=== PATIENT | male | born 1985 | race Caucasian/White ===

== ENCOUNTER 2017-08-15 07:57 | Emergency (ER) | payer OTHER, SELFPAY ==
[2017-08-15 07:58] VITALS: BP 134/81; PULSE 98; RESP 16; TEMP 36.8; O2SAT 98; BMI 31.6
--- NOTE | 2017-08-15 08:17 | HMH.EDGENADL ---
ED Disposition Clinical Impression: Viral gastroenteritis Disposition: Home, Self-Care Condition on Discharge: Good Instructions: DI for Viral Gastroenteritis -- Adult Additional Instructions: Additional instructions for VOMITING/DIARRHEA: See your physician as soon as possible for further evaluation. Return immediately if severe abdominal pain, uncontrollable vomiting, shortness of breath, fever, vomiting of blood or abdominal distention. Prescriptions: Loperamide HCl [Loperamide] 2 mg PO TIDP PRN #10 tab PRN Reason: Diarrhea Ondansetron [Zofran 4mg ODT] 4 mg PO TIDP PRN #10 tab.rapdis PRN Reason: Nausea And Vomiting Forms: Work/School Release - Critical Care Critical Care Time: No Attestation: On , the high probability of a clinically significant, sudden or life threatening deterioration of the following system(s) required my full and direct attention, intervention and personal management. The time I documented below is in addition to time spent performing reported procedures but includes the following listed in this critical care notation. Medical Decision Making Vital Signs: 08/15/17 07:58 Temperature 98.2 F Temperature Source Oral Pulse Rate [Right Radial] 98 H Respiratory Rate 16 Blood Pressure [Right Arm] 134/81 Blood Pressure Mean [Right Arm] 98 Blood Pressure Source [Right Arm] Automatic Cuff Blood Pressure Position [Right Arm] Sitting 02 Sat by Pulse Oximetry 98 - Lab Data Lab Results 08/15/17 08:40: WBC 8.7, RBC 5.01, Hgb 14.9, Hct 44.1, MCV 88.0, MCH 29.7, MCHC 33.7, RDW 12.6, Plt Count 235, MPV 7.9, Neut % (Auto) 53.4, Lymph % (Auto) 36.8, [place] % (Auto) 3.8, Eos % (Auto) 5.3, Baso % (Auto) 0.7, Neut # (Auto) 4.7, Lymph # (Auto) 3.2, [place] # (Auto) 0.3, Eos # (Auto) 0.5 H, Baso # (Auto) 0.1 08/15/17 08:40: Sodium 140, Potassium 3.7, Chloride 106, Carbon Dioxide 25, Anion Gap 12.7, BUN 13, Creatinine 0.88, Estimated Creat Clear 207, Estimated GFR 102, Est GFR ( Amer) 124, Glucose 97, Calcium 8.4 L, Total Bilirubin 0.4, AST 32, ALT 60, Alkaline Phosphatase 98, Total Protein 7.1, Albumin 3.7, Globulin 3.4 H, Albumin/Globulin Ratio 1.1 08/15/17 08:40: Influenza Type A Ag Negative, Influenza Type B Ag Negative Result diagrams: 08/15/17 08:40 08/15/17 08:40 Orders (Tests/Meds): ED MEDICATIONS Discontinued Medications Generic Name Dose Route Start Last Admin Trade Name Cheo PRN Reason Stop Dose Admin Loperamide HCl 4 mg 08/15/17 08:23 08/15/17 08:58 Imodium 2 Mg Capsule PO 08/15/17 08:24 4 mg ONCE ONE Administration Ondansetron HCl 4 mg 08/15/17 08:23 08/15/17 08:58 Zofran 4mg/2ml Vial IV 08/15/17 08:24 4 mg ONCE ONE Administration Sodium Chloride 1,000 ml 08/15/17 08:42 08/15/17 08:59 Sod Chlor 0.9% 1000ml Bag IV 08/15/17 08:43 1,000 ml BOLUS ONE Administration - Dl Inquiry Pt receiving controlled substance: No Medical Decision Making Narrative: 9:45 AM: Patient states feels better. Nausea is better. No diarrhea in the ED. Chest feels achy. Declines Toradol. General Adult HPI - General Chief complaint: Abdominal Pain Stated complaint: nausea diaherra head congestion Mode of Arrival: Ambulatory Limitations: No Limitations Description of Symptoms (Recalled from ER Triage Doc. by RN): N/V/D Started 1800 08/14. C/O Dizziness this morning. Denies CP or SOB. Takes nexium for GERD, no other meds. Took 400mg Ibuprofen this AM for current symptoms. - History of Present Illness HPI narrative: He states he has been sick since yesterday with 6 episodes of diarrhea without blood, 3 episodes of vomiting this morning while at work, intermittent epigastric pain, bitemporal headache, body aches, mild cough and rhinorrhea. No known exposures. Prior history of diverticulitis, states that his abdominal pain does not feel anything like previous diverticulitis, which gives him constant lower abdominal pain. No fever. - Related Da
[2017-08-15 08:52] LABS: Basophils # 0.1 K/mm3 (0-0.2); Basophils % 0.7 % (0.1-2.0); Eosinophils # 0.5 K/mm3 (0.0-0.4); Eosinophils % 5.3 % (0.1-12.0); Hematocrit 44.1 % (42.0-52.0); Hemoglobin 14.9 g/dL (14.1-18.0); Lymphocytes # 3.2 K/mm3 (0.7-4.5); Lymphocytes % 36.8 K/mm3 (10-50); Mean Corpuscular HGB Conc 33.7 g/dL (31.8-35.4); Mean Corpuscular Hemoglobin 29.7 pg (27.0-31.2); Mean Platelet Volume 7.9 fl (7.4-10.4); Monocytes # 0.3 K/mm3 (0.1-1.0); Monocytes % 3.8 % (1.7-9.3); Neutrophils # 4.7 K/mm3 (1.8-7.8); Neutrophils % 53.4 % (37.0-80.0); Platelet Count 235 K/mm3 (142-424); Red Blood Count 5.01 M/mm3 (4.60-6.20); Red Cell Distribution Width 12.6 % (11.5-17.5); White Blood Count 8.7 K/mm3 (4.8-10.8)
[2017-08-15 09:24] LABS: Alanine Aminotransferase 60 U/L (12-78); Albumin Level 3.7 gm/dL (3.4-5.0); Albumin/Globulin Ratio 1.1 (1.1-1.8); Alkaline Phosphatase 98 U/L (46-116); Anion Gap 12.7 mEq/L (5-15); Aspartate Amino Transferase 32 U/L (15-37); Bilirubin,Total 0.4 mg/dL (0.2-1.0); Blood Urea Nitrogen 13 mg/dL (7-18); Calcium 8.4 mg/dL (8.5-10.1); Carbon Dioxide 25 mmol/L (21.0-32.0); Chloride 106 mmol/L (98-107); Creatinine Clearance Estimated 207 mL/min (0-300); Creatinine,Serum 0.88 mg/dL (0.70-1.30); Estimated Glomerular Filt Rate 102 ml/min (>60); GFR (African American) 124 ML/MIN (>60); Globulin 3.4 gm/dl (1.3-3.2); Glucose 97 mg/dL (74-106); Potassium 3.7 mmoL/L (3.5-5.1); Sodium 140 mmol/L (136-145); Total Protein,Serum 7.1 gm/dL (6.4-8.2)
[2017-08-15 09:55] VITALS: BP 150/103; PULSE 57; RESP 18; TEMP 36.6; O2SAT 99
== END 2017-08-15 10:02 | disposition home or self-care (01) ==
PROVIDERS: Emergency Medicine; Emergency Provider Emergency Medicine; Family Provider Family Medicine
DX: A08.4 Viral intestinal infection, unspecified (principal); Z90.49 Acquired absence of other specified parts of digestive tract; F17.210 Nicotine dependence, cigarettes, uncomplicated
CPT/HCPCS: 80053; 85025; 87275; 87276; 96365; 96366; 96374; 96375; 99282; J2405

== ENCOUNTER 2018-12-18 12:12 | Emergency (ER) | payer MEDICAID, SELFPAY ==
[2018-12-18 12:14] VITALS: BP 120/79; PULSE 79; RESP 18; TEMP 36.8; O2SAT 98; BMI 32.8
--- NOTE | 2018-12-18 12:21 | XR_ITS ---
XR chest 2V HISTORY: ITS.REASON: chest pain ORDERING PHYSICIAN: Jarvis Pereyra MD PATIENT AGE: 33 years COMPARISON: 02/24/2018. FINDINGS: The cardiomediastinal silhouette and pulmonary vascularity are within normal limits. There are stable right lung benign calcified granulomas. The remainder of the lung hightower are clear.. No acute bony abnormalities. IMPRESSION: No significant change and no acute process.
[2018-12-18 12:30] LABS: Basophils # 0.1 K/mm3 (0-0.2); Basophils % 0.8 % (0.1-2.0); Eosinophils # 0.3 K/mm3 (0.0-0.4); Eosinophils % 3.3 % (0.1-12.0); Hematocrit 46.4 % (42.0-52.0); Hemoglobin 14.9 g/dL (14.1-18.0); Lymphocytes # 3.6 K/mm3 (0.7-4.5); Lymphocytes % 37.7 % (10-50); Mean Corpuscular Hemoglobin 29.3 pg (27.0-31.2); Mean Corpuscular Volume 91.6 fl (80-94); Mean Platelet Volume 7.8 fl (7.4-10.4); Monocytes # 0.4 K/mm3 (0.1-1.0); Monocytes % 4.1 % (1.7-9.3); Neutrophils # 5.1 K/mm3 (1.8-7.8); Neutrophils % 54.1 % (37.0-80.0); Platelet Count 256 K/mm3 (142-424); Red Blood Count 5.07 M/mm3 (4.60-6.20); Red Cell Distribution Width 13.6 % (11.5-17.5); White Blood Count 9.5 K/mm3 (4.8-10.8)
[2018-12-18 12:40] LABS: Anion Gap 15.2 mEq/L (5-15); Blood Urea Nitrogen 11 mg/dL (7-18); Calcium 8.4 mg/dL (8.5-10.1); Carbon Dioxide 25 mmol/L (21.0-32.0); Chloride 104 mmol/L (98-107); Creatinine Clearance Estimated 170 mL/min (50-200); Creatinine,Serum 1.09 mg/dL (0.70-1.30); Estimated Glomerular Filt Rate 79 ml/min (>60); GFR (African American) 95 ML/MIN (>60); Glucose 100 mg/dL (74-106); Potassium 3.2 mmoL/L (3.5-5.1); Sodium 141 mmol/L (136-145); Troponin I < 0.02 ng/ml (0.00-0.06)
[2018-12-18 12:44] VITALS: BP 115/75; PULSE 76; O2SAT 97
--- NOTE | 2018-12-18 12:55 | PC.NURSE ---
Pt returned from rad.
[2018-12-18 14:23] VITALS: BP 102/73; PULSE 67; RESP 14; O2SAT 95
--- NOTE | 2018-12-18 14:27 | HMH.EDGENADL ---
ED Disposition Clinical Impression: Chest pain Disposition: Home, Self-Care Condition on Discharge: Good Instructions: DI for Atypical Chest Pain Additional Instructions: return to Dr. Flaherty's office in am for follow-up. Tell them you were in the ED Referrals: Vicente Rico MD [Primary Care Provider] - Time of Disposition: 14:42 - Critical Care Critical Care Time: No Attestation: On 12/18/18, the high probability of a clinically significant, sudden or life threatening deterioration of the following system(s) required my full and direct attention, intervention and personal management. The time I documented below is in addition to time spent performing reported procedures but includes the following listed in this critical care notation. Medical Decision Making - Medical Records Medical records reviewed: Yes: I reviewed the patient's medical records. - Dl Inquiry Pt receiving controlled substance: No Dl was queried for this patient: No Vital Signs: 12/18/18 12:14 12/18/18 12:44 12/18/18 14:23 Temperature 98.2 F Temperature Source Oral Pulse Rate [Apical] 79 76 67 Respiratory Rate 18 14 Blood Pressure [Right Arm] 120/79 115/75 102/73 L Blood Pressure Mean [Right Arm] 92 88 82 Blood Pressure Source [Right Arm] Automatic Cuff Automatic Cuff Automatic Cuff Blood Pressure Position [Right Arm] Sitting Sitting Sitting 02 Sat by Pulse Oximetry 98 97 95 Oxygen Delivery Method Room Air Room Air Room Air - Lab Data Lab results reviewed: Yes: I reviewed the patient's lab results. Lab Results 12/18/18 12:15: WBC 9.5, RBC 5.07, Hgb 14.9, Hct 46.4, MCV 91.6, MCH 29.3, MCHC 32.0, RDW 13.6, Plt Count 256, MPV 7.8, Neut % (Auto) 54.1, Lymph % (Auto) 37.7, [place] % (Auto) 4.1, Eos % (Auto) 3.3, Baso % (Auto) 0.8, Neut # (Auto) 5.1, Lymph # (Auto) 3.6, [place] # (Auto) 0.4, Eos # (Auto) 0.3, Baso # (Auto) 0.1 12/18/18 12:15: Sodium 141, Potassium 3.2 L, Chloride 104, Carbon Dioxide 25, Anion Gap 15.2 H, BUN 11, Creatinine 1.09, Estimated Creat Clear 170, Estimated GFR 79, Est GFR ( Amer) 95, Glucose 100, Calcium 8.4 L, Troponin I < 0.02 Result diagrams: 12/18/18 12:15 12/18/18 12:15 Orders (Tests/Meds): ED MEDICATIONS Discontinued Medications Generic Name Dose Route Start Last Admin Trade Name Cheo PRN Reason Stop Dose Admin Aspirin 324 mg 12/18/18 12:55 12/18/18 12:56 Aspirin 81mg Chewable Tablet PO 12/18/18 12:56 324 mg ONCE ONE Administration Dexamethasone Sodium Phosphate 8 mg 12/18/18 14:36 Decadron 4mg/Ml 1ml Vial IV 12/18/18 14:37 ONCE ONE Ketorolac Tromethamine 30 mg 12/18/18 14:35 Toradol 30mg/Ml Vial IV 12/18/18 14:36 ONCE ONE ORDERS Category Date Time Status Troponin I Stat Lab 12/18/18 14:35 Ordered - ECG Data Tracing #1 ECG initial impression date: 12/18/18 ECG initial impression time: 14:40 ECG normal with no acute: arrhythmias, ischemia, conduction abnormalities, chamber hypertrophy Normal Sinus Rhythm: Yes General Adult HPI - General Chief complaint: Chest Pain Stated complaint: chest pain Time Seen by Provider: 12/18/18 14:35 Mode of Arrival: Ambulatory Source of Information: Patient Limitations: No Limitations Description of Symptoms (Recalled from ER Triage Doc. by RN): Pt reports chest pain that began yesterday morning when he woke up. Pt describes pain as constant pressure and sharp intermittent pain. Pt reports he has had periods of SOA, has and dry non-productive cough. - History of Present Illness HPI narrative: substernal chest pain since yesterdy intermittently, no provocacation and no relief. NO prior history. Dad 51 from [place]. siblings alive. Smoker, drinker,factory maintenance manager - Related Data Home Medications Medication Instructions Recorded Confirmed esomeprazole magnesium 20 mg 20 mg PO QDAY cap 07/18/17 11/01/18 capsule,delayed release Loratadine [Claritin 10mg Tablet] 10
--- NOTE | 2018-12-18 14:35 | ED_ITS ---
ED Disposition Clinical Impression: Chest pain Disposition: Home, Self-Care Condition on Discharge: Good Instructions: DI for Atypical Chest Pain Additional Instructions: return to Dr. Flaherty's office in am for follow-up. Tell them you were in the ED Referrals: Vicente Rico MD [Primary Care Provider] - Time of Disposition: 14:42 - Critical Care Critical Care Time: No Attestation: On 12/18/18, the high probability of a clinically significant, sudden or life threatening deterioration of the following system(s) required my full and direct attention, intervention and personal management. The time I documented below is in addition to time spent performing reported procedures but includes the following listed in this critical care notation. Medical Decision Making - Medical Records Medical records reviewed: Yes: I reviewed the patient's medical records. - Dl Inquiry Pt receiving controlled substance: No Dl was queried for this patient: No Vital Signs: 12/18/18 12:14 12/18/18 12:44 12/18/18 14:23 Temperature 98.2 F Temperature Source Oral Pulse Rate [Apical] 79 76 67 Respiratory Rate 18 14 Blood Pressure [Right Arm] 120/79 115/75 102/73 L Blood Pressure Mean [Right Arm] 92 88 82 Blood Pressure Source [Right Arm] Automatic Cuff Automatic Cuff Automatic Cuff Blood Pressure Position [Right Arm] Sitting Sitting Sitting 02 Sat by Pulse Oximetry 98 97 95 Oxygen Delivery Method Room Air Room Air Room Air - Lab Data Lab results reviewed: Yes: I reviewed the patient's lab results. Lab Results 12/18/18 12:15: WBC 9.5, RBC 5.07, Hgb 14.9, Hct 46.4, MCV 91.6, MCH 29.3, MCHC 32.0, RDW 13.6, Plt Count 256, MPV 7.8, Neut % (Auto) 54.1, Lymph % (Auto) 37.7, [place] % (Auto) 4.1, Eos % (Auto) 3.3, Baso % (Auto) 0.8, Neut # (Auto) 5.1, Lymph # (Auto) 3.6, [place] # (Auto) 0.4, Eos # (Auto) 0.3, Baso # (Auto) 0.1 12/18/18 12:15: Sodium 141, Potassium 3.2 L, Chloride 104, Carbon Dioxide 25, Anion Gap 15.2 H, BUN 11, Creatinine 1.09, Estimated Creat Clear 170, Estimated GFR 79, Est GFR ( Amer) 95, Glucose 100, Calcium 8.4 L, Troponin I < 0.02 Result diagrams: 12/18/18 12:15 12/18/18 12:15 Orders (Tests/Meds): ED MEDICATIONS Discontinued Medications Generic Name Dose Route Start Last Admin Trade Name Freq PRN Reason Stop Dose Admin Aspirin 324 mg 12/18/18 12:55 12/18/18 12:56 Aspirin 81mg Chewable Tablet PO 12/18/18 12:56 324 mg ONCE ONE Administration Dexamethasone Sodium Phosphate 8 mg 12/18/18 14:36 Decadron 4mg/Ml 1ml Vial IV 12/18/18 14:37 ONCE ONE Ketorolac Tromethamine 30 mg 12/18/18 14:35 Toradol 30mg/Ml Vial IV 12/18/18 14:36 ONCE ONE ORDERS Category Date Time Status Troponin I Stat Lab 12/18/18 14:35 Ordered - ECG Data Tracing #1 ECG initial impression date: 12/18/18 ECG initial impression time: 14:40 ECG normal with no acute: arrhythmias, ischemia, conduction abnormalities, chamber hypertrophy Normal Sinus Rhythm: Yes General Adult HPI - General Chief complaint: Chest Pain Stated complaint: chest pa
--- NOTE | 2018-12-18 14:55 | PC.NURSE ---
BLOOD SENT TO LAB FOR 2ND TROP
[2018-12-18 15:42] LABS: Troponin I < 0.02 ng/ml (0.00-0.06)
[2018-12-18 15:44] VITALS: PULSE 62; O2SAT 98
[2018-12-18 15:57] VITALS: BP 117/73; PULSE 59; O2SAT 97
[2018-12-18 16:34] VITALS: BP 116/66; PULSE 68; RESP 18; TEMP 37.1; O2SAT 98
== END 2018-12-18 16:35 | disposition home or self-care (01) ==
PROVIDERS: Emergency Provider Emergency Medicine; PCP Internal Medicine Adolescent Medicine
DX: R07.9 Chest pain, unspecified (principal); F17.210 Nicotine dependence, cigarettes, uncomplicated; Z90.49 Acquired absence of other specified parts of digestive tract
CPT/HCPCS: 71046; 80048; 84484; 85025; 93005; 96374; 96375; 99284

== ENCOUNTER 2019-12-30 13:19 | Emergency (ER) | payer BC, SELFPAY ==
[2019-12-30 13:20] VITALS: BP 134/99; PULSE 72; RESP 18; TEMP 36.6; O2SAT 98; BMI 32.8
--- NOTE | 2019-12-30 13:20 | ECG_ITS ---
APPROVED REPORT Exam: Resting ECG HR:62 bpm ECG Measurements Heart Rate 62 AXES GA 136 P 24 QRSd 100 QRS 37 QT 424 T 24 QTc 430 <Conclusion> Normal sinus rhythm Normal ECG Electronically signed by : Vicente Rico, 12/30/2019 21:22:28
--- NOTE | 2019-12-30 13:33 | XR_ITS ---
PROCEDURE: XR CHEST 2V CLINICAL HISTORY: chest pain COMPARISON: CXR2V XR chest 2V from 02/24/2018 Chest from 12/18/2018 XR CHEST 2V from 06/08/2019 FINDINGS: The cardiomediastinal silhouette and pulmonary vascularity are within normal limits. There is a stable 6 mm nodule in the right upper lobe. The remaining lungs are clear No acute bony abnormalities. IMPRESSION: No change with no acute finding Dictated by: Ricardo Vieira MD 12/30/2019 13:49 Electronically signed by Ricardo Vieira MD in [place] 12/30/2019 13:49
[2019-12-30 13:41] LABS: Basophils # 0.1 K/mm3 (0-0.2); Basophils % 0.7 % (0.1-2.0); Eosinophils # 0.4 K/mm3 (0.0-0.4); Eosinophils % 4.2 % (0.1-12.0); Hematocrit 44.6 % (42.0-52.0); Hemoglobin 15.5 g/dL (14.1-18.0); Lymphocytes # 4.2 K/mm3 (0.7-4.5); Lymphocytes % 43.7 % (10-50); Mean Corpuscular HGB Conc 34.9 g/dL (31.8-35.4); Mean Corpuscular Hemoglobin 31.1 pg (27.0-31.2); Mean Corpuscular Volume 89.4 fl (80-94); Mean Platelet Volume 7.8 fl (7.4-10.4); Monocytes # 0.3 K/mm3 (0.1-1.0); Monocytes % 2.6 % (1.7-9.3); Neutrophils # 4.7 K/mm3 (1.8-7.8); Neutrophils % 48.9 % (37.0-80.0); Platelet Count 223 K/mm3 (142-424); Red Blood Count 4.99 M/mm3 (4.60-6.20); White Blood Count 9.5 K/mm3 (4.8-10.8)
[2019-12-30 13:44] LABS: Anion Gap 13.5 mEq/L (5-15); Blood Urea Nitrogen 11 mg/dl (9-20); Calcium 9.1 mg/dl (8.4-10.2); Carbon Dioxide 25 mmol/L (22.0-30.0); Chloride 101 mmol/L (98-107); Creatinine Clearance Estimated 230 mL/min (50-200); Estimated Glomerular Filt Rate 112 ml/min (>60); GFR (African American) 136 ML/MIN (>60); Glucose 138 mg/dl (74-100); Potassium 3.5 mmoL/L (3.5-5.1); Sodium 136 mmol/L (136-145)
--- NOTE | 2019-12-30 13:50 | HMH.EDCP ---
ED Disposition Clinical Impression: Chest pain, atypical Disposition: Home, Self-Care Condition on Discharge: Good Additional Instructions: You have been evaluated for chest pain, atypical. On our work-up today it does not appear that your chest pain is due to a heart attack. Please follow-up with your primary care physician as soon as available. Return to the emergency department if you have any new or worsening pain (especially pain radiating to your back, arm, jaw), shortness of breath, other concerns. Referrals: Provider,Referral, [Primary Care Provider] - Forms: Work/School Release Time of Disposition: 16:23 - Critical Care Critical Care Time: No Attestation: On 12/30/19, the high probability of a clinically significant, sudden or life threatening deterioration of the following system(s) required my full and direct attention, intervention and personal management. The time I documented below is in addition to time spent performing reported procedures but includes the following listed in this critical care notation. Medical Decision Making - Medical Records Medical records reviewed: Yes: I reviewed the patient's medical records. - Dl Inquiry Pt receiving controlled substance: No Vital Signs: 12/30/19 13:20 12/30/19 16:32 Temperature 97.8 F 97.8 F Temperature Source Oral Oral Pulse Rate 72 Pulse Rate [Right Brachial] 72 Respiratory Rate 18 18 Blood Pressure 134/99 H Blood Pressure [Right Arm] 134/99 H Blood Pressure Mean [Right Arm] 110 Blood Pressure Source Automatic Cuff Blood Pressure Position Sitting Blood Pressure Position [Right Arm] Supine 02 Sat by Pulse Oximetry 98 Oxygen Delivery Method Room Air Room Air - Lab Data Lab Results 12/30/19 13:25: WBC 9.5, RBC 4.99, Hgb 15.5, Hct 44.6, MCV 89.4, MCH 31.1, MCHC 34.9, RDW 13.0, Plt Count 223, MPV 7.8, Neut % (Auto) 48.9, Lymph % (Auto) 43.7, [place] % (Auto) 2.6, Eos % (Auto) 4.2, Baso % (Auto) 0.7, Neut # (Auto) 4.7, Lymph # (Auto) 4.2, [place] # (Auto) 0.3, Eos # (Auto) 0.4, Baso # (Auto) 0.1 07/07/20 13:25: Sodium 136, Potassium 3.5, Chloride 101, Carbon Dioxide 25, Anion Gap 13.5, BUN 11, Creatinine 0.80, Estimated Creat Clear 230, Estimated GFR 112, Est GFR ( Amer) 136, Glucose 138 H, Calcium 9.1, Troponin I < 0.01 12/30/19 15:20: Troponin I < 0.01 Result diagrams: 12/30/19 13:25 12/30/19 13:25 Orders (Tests/Meds): ED MEDICATIONS Discontinued Medications Generic Name Dose Route Start Last Admin Trade Name Cheo PRN Reason Stop Dose Admin Aspirin 324 mg 12/30/19 13:34 12/30/19 13:35 Aspirin 81mg Chewable Tablet PO 12/30/19 13:35 324 mg ONCE ONE Administration - ECG Data Tracing #1 Sinus rhythm with ventricular rate of 62 bpm. QRS 100, QTc 430. No ST segment elevation. No arrhythmia. - JAMIL Score for Non-Stemi Age of Patient: 30-39 years old Heart Rate: 70-89 bpm Systolic Blood Pressure: 120-139 mmhg Serum Creatinine: 0.80-1.19 mg/dl CHF [place] Class: I-No CHF Other Risk Factors: None Non-Stemi Risk Score: 58 Medical Decision Narrative: In summary this is a 34-year-old male presenting to the emergency department with left-sided substernal chest pain. Patient is in no distress on arrival. Vital signs are stable. Differential diagnoses include acute coronary syndrome, vasospasm, musculoskeletal pain, pneumonia. Plan to obtain CBC, CMP, chest x-ray, EKG, troponin profile and reassess. Patient given chewable aspirin. Pain is not with inspiration, patient does not have tachypnea or tachycardia, doubt pulmonary embolus. Pain also is not described as intense, ripping, going into the back, doubt aortic dissection. EKG shows sinus rhythm without evidence of ischemia. Laboratory results are generally unremarkable. Initial troponin is not elevated, will obtain delta. X-ray shows no acute pathology within the thorax. Patient is chest pain-free on my evaluation. Delta troponin
[2019-12-30 13:58] LABS: Troponin I < 0.01 ng/ml (0.00-0.034)
[2019-12-30 16:00] LABS: Troponin I < 0.01 ng/ml (0.00-0.034)
[2019-12-30 16:32] VITALS: BP 134/99; PULSE 72; RESP 18; TEMP 36.6; O2SAT 98
== END 2019-12-30 16:33 | disposition home or self-care (01) ==
PROVIDERS: Emergency Provider Emergency Medicine
DX: R07.89 Other chest pain (principal); F17.210 Nicotine dependence, cigarettes, uncomplicated
CPT/HCPCS: 71046; 80048; 84484; 85025; 93005; 99283

== ENCOUNTER 2020-10-04 08:41 | Emergency (ER) | payer BC, SELFPAY ==
--- NOTE | 2020-10-04 08:38 | ECG_ITS ---
APPROVED REPORT Exam: Resting ECG HR:79 bpm ECG Measurements Heart Rate 79 AXES [place] 148 P 24 QRSd 90 QRS 9 QT 384 T 23 QTc 440 Conclusion Normal sinus rhythm Normal ECG Electronically signed by : Vicente Rico, 10/07/2020 14:00:33
[2020-10-04 08:42] VITALS: BP 123/83; PULSE 77; RESP 14; TEMP 36.6; O2SAT 99; BMI 35.3
--- NOTE | 2020-10-04 08:46 | XR_ITS ---
PROCEDURE: XR CHEST 2V CLINICAL HISTORY: cp Chest pain, smoker COMPARISON: CT ABDPELW CT ABD PELVIS W/ CONTRAST from 02/09/2016 CR Chest from 12/18/2018 CR XR CHEST 2V from 06/08/2019 CR XR CHEST 2V from 12/30/2019 FINDINGS: The cardiomediastinal silhouette and pulmonary vascularity are within normal limits. There is calcified granuloma in the right upper lobe. 7 mm nodular opacity also noted in the right lower lobe and may be due to a granuloma. Sclerotic density overlies the T8 vertebral body superiorly on the lateral view possibly due to a sclerotic focus within the vertebral body. Stability may be confirmed with follow-up. No lobar consolidation or collapse. No acute bony abnormalities. IMPRESSION: As above, no acute finding Dictated by: Ricardo Vieira MD 10/04/2020 10:07 Ricardo Vieira MD in [place] 10/04/2020 10:07
--- NOTE | 2020-10-04 08:46 | HMH.EDGENADL ---
ED Disposition Clinical Impression: Chest pain Qualifiers: Chest pain type: other chest pain Qualified Code(s): R07.89 - Other chest pain Disposition: Home, Self-Care Condition on Discharge: Good Referrals: Vicente Rico MD [Primary Care Provider] - 3 days Time of Disposition: 10:10 - Critical Care Critical Care Time: No Attestation: On , the high probability of a clinically significant, sudden or life threatening deterioration of the following system(s) required my full and direct attention, intervention and personal management. The time I documented below is in addition to time spent performing reported procedures but includes the following listed in this critical care notation. Medical Decision Making - Medical Records Medical records reviewed: Yes: I reviewed the patient's medical records. - Dl Inquiry Pt receiving controlled substance: No Vital Signs: 10/04/20 08:42 10/04/20 09:00 Temperature 97.8 F Temperature Source Oral Pulse Rate 69 Pulse Rate [Right] 77 Respiratory Rate 14 Blood Pressure 118/82 Blood Pressure [Right Arm] 123/83 Blood Pressure Mean 94 Blood Pressure Mean [Right Arm] 96 02 Sat by Pulse Oximetry 99 97 - Lab Data Lab results reviewed: Yes: I reviewed the patient's lab results. Lab Results 10/04/20 08:40: Sodium 140, Potassium 4.1, Chloride 108 H, Carbon Dioxide 23, Anion Gap 13.1, BUN 12, Creatinine 0.80, Estimated Creat Clear 247, Estimated GFR 112, Est GFR ( Amer) 136, Glucose 121 H, Calcium 9.0, Troponin I < 0.01 Result diagrams: 10/04/20 08:40 Orders (Tests/Meds): ED MEDICATIONS Discontinued Medications Generic Name Dose Route Start Last Admin Trade Name Freq PRN Reason Stop Dose Admin Aspirin 325 mg 10/04/20 08:47 10/04/20 09:04 Aspirin 325mg Tablet PO 10/04/20 08:48 325 mg ONCE ONE Administration ORDERS Category Date Time Status CXR 2 view (NOT portable) [XR chest 2V] Stat Exams 10/04/20 08:46 Taken - ECG Data Tracing #1 7 9 bpm, normal sinus rhythm, no ST elevation or depression, normal intervals, no ectopy. Noted to have tall, peaked T waves in V2. ECG initial impression date: 10/04/20 ECG initial impression time: 08:40 Medical Decision Narrative: 34yo M evaluated for left-sided chest pain. Differential diagnosis includes was not limited to: ACS/MS, PE, pneumonia, GERD, anxiety, musculoskeletal strain, aortic emergency, constipation/gas, cholecystitis. Patient is in no acute distress on initial evaluation. Pain is reproducible with left upper extremity range of motion as well as palpation of the area. EKG is unremarkable as above. Two-view chest x-ray is pending Labs are unremarkable with troponin less than 0.01. Potassium is within normal limits. Chest x-ray is benign and shows no acute change from previous study in 2019. Patient remains appropriate and stable at this time. He is cleared for discharge. Follow with PCP. Stop smoking. General Adult HPI - General Stated complaint: chest pain Time Seen by Provider: 10/04/20 08:46 Mode of Arrival: Ambulatory - History of Present Illness HPI narrative: 34yo M without significant past medical history presents the emergency department secondary to left-sided chest pain that began approximately 3 hours prior to arrival. Pain is worse with use of his left upper extremity. Patient denies shortness of breath, nausea, diaphoresis, radiation of pain. Pain is not worsened with exertion. Patient reports his father had a heart attack at the age of 52. Patient vapes and chews tobacco. Patient denies any recent illness. - Related Data Home Medications Medication Instructions Recorded Confirmed esomeprazole magnesium 20 mg 20 mg PO QDAY cap 07/18/17 09/01/19 capsule,delayed release predniSONE [Prednisone 20mg 20 mg PO BID 12/30/19 Tab] Previous Rx's Medication Instructions Recorded Albuterol Sulfate [Albuterol HFA 2 puffs I
[2020-10-04 08:59] LABS: Chloride 108 mmol/L (98-107); Sodium 140 mmol/L (136-145)
[2020-10-04 09:00] VITALS: BP 118/82; PULSE 69; O2SAT 97
[2020-10-04 09:02] LABS: Blood Urea Nitrogen 12 mg/dl (9-20); Creatinine Clearance Estimated 247 mL/min (50-200); Estimated Glomerular Filt Rate 112 ml/min (>60); GFR (African American) 136 ML/MIN (>60); Potassium 4.1 mmoL/L (3.5-5.1)
[2020-10-04 09:03] LABS: Anion Gap 13.1 mEq/L (5-15); Carbon Dioxide 23 mmol/L (22.0-30.0); Glucose 121 mg/dl (74-100)
[2020-10-04 09:17] LABS: Troponin I < 0.01 ng/ml (0.00-0.034)
[2020-10-04 10:28] VITALS: BP 124/77; PULSE 71; RESP 18; TEMP 36.8
== END 2020-10-04 10:26 | disposition home or self-care (01) ==
PROVIDERS: Emergency Provider Family Medicine; PCP Internal Medicine Adolescent Medicine
DX: R07.89 Other chest pain (principal); F17.290 Nicotine dependence, other tobacco product, uncomplicated; F17.210 Nicotine dependence, cigarettes, uncomplicated
CPT/HCPCS: 71046; 80048; 84484; 93005; 99282

== ENCOUNTER 2020-11-16 06:46 | Emergency (ER) | payer BC, SELFPAY ==
[2020-11-16 06:50] VITALS: BP 158/90; PULSE 66; RESP 16; TEMP 36.7; O2SAT 98; BMI 34.0
[2020-11-16 07:07] VITALS: BMI 25.5
--- NOTE | 2020-11-16 07:08 | XR_ITS ---
PROCEDURE INFORMATION: Exam: XR Chest Exam date and time: 11/16/2020 7:08 AM Age: 35 years old Clinical indication: Patient HX: H/a body aches weakness TECHNIQUE: Imaging protocol: XR of the chest. Views: 2 views. COMPARISON: CR XR CHEST 2V 10/04/2020 8:56 AM FINDINGS: Lungs: Unremarkable. No consolidation. Pleural spaces: Unremarkable. No pleural effusion. No pneumothorax. Heart/Mediastinum: Unremarkable. No cardiomegaly. Bones/joints: Unremarkable. IMPRESSION: No acute findings.
[2020-11-16 07:17] LABS: Appearance,Urine CLEAR (Clear); Bilirubin,Urine Negative (Negative); Blood, Urine Negative (Negative); Color,Urine YELLOW (Yellow); Glucose,Urine (UA) Negative (Negative); Ketones,Urine Negative (Negative); Leukocyte Esterase,Urine Negative (Negative); Microscopic, Urine URINE MICROSCOPIC (MICROSCOPIC); Nitrate,Urine Negative (Negative); Protein,Urine Negative (Negative); Specific Gravity, Urine >= 1.030 (1.005-1.030); Urobilinogen,Urine 0.2 EU/dl (0.2)
--- NOTE | 2020-11-16 07:19 | HMH.EDURI ---
ED Disposition Clinical Impression: Upper respiratory infection Qualifiers: URI type: unspecified URI Qualified Code(s): J06.9 - Acute upper respiratory infection, unspecified Disposition: Home, Self-Care Condition on Discharge: Good Instructions: DI for Viral Upper Respiratory Infection -- Adult Additional Instructions: fluids and see pcp for follow up Prescriptions: Azithromycin [Zithromax 250mg tab] 250 mg PO DIRECTED #6 tab Transmission Status: Pending to [facility] Referrals: Vicente Rico MD [Primary Care Provider] - - Critical Care Critical Care Time: No Attestation: On 11/16/20, the high probability of a clinically significant, sudden or life threatening deterioration of the following system(s) required my full and direct attention, intervention and personal management. The time I documented below is in addition to time spent performing reported procedures but includes the following listed in this critical care notation. Medical Decision Making - Medical Records Medical records reviewed: Yes: I reviewed the patient's medical records. - Dl Inquiry Pt receiving controlled substance: No Vital Signs: 11/16/20 06:50 11/16/20 07:58 Temperature 98.1 F Temperature Source Oral Pulse Rate 67 Pulse Rate [Right] 66 Respiratory Rate 16 16 Blood Pressure 137/81 Blood Pressure [Right Arm] 158/90 H Blood Pressure Mean [Right Arm] 112 Blood Pressure Source Automatic Cuff Blood Pressure Source [Right Arm] Automatic Cuff Blood Pressure Position Sitting Blood Pressure Position [Right Arm] Sitting 02 Sat by Pulse Oximetry 98 98 Oxygen Delivery Method Room Air Room Air - Lab Data Lab results reviewed: Yes: I reviewed the patient's lab results. Lab Results 11/16/20 06:55: Urine Color Yellow, Urine Appearance Clear, Urine pH 6.0, Ur Specific [place] >= 1.030, Urine Protein Negative, Urine Glucose (UA) Negative, Urine Ketones Negative, Urine Blood Negative, Urine Nitrate Negative, Urine Bilirubin Negative, Urine Urobilinogen 0.2, Ur Leukocyte Esterase Negative, Urine RBC None, Urine WBC 3-5, Ur Squamous Epith Cells Occasional, Urine Bacteria None 11/16/20 07:20: WBC 9.2, RBC 4.90, Hgb 14.7, Hct 43.1, MCV 87.8, MCH 30.0, MCHC 34.1, RDW 12.9, Plt Count 244, MPV 7.8, Neut % (Auto) 51.0, Lymph % (Auto) 38.2, Ge[place] % (Auto) 4.3, Eos % (Auto) 5.8, Baso % (Auto) 0.8, Neut # (Auto) 4.7, Lymph # (Auto) 3.5, Geary # (Auto) 0.4, Eos # (Auto) 0.5 H, Baso # (Auto) 0.1 11/16/20 07:20: Sodium 138, Potassium 4.0, Chloride 108 H, Carbon Dioxide 23, Anion Gap 11.0, BUN 13, Creatinine 0.70, Estimated Creat Clear 202, Estimated GFR 130, Est GFR ( Amer) 157, Glucose 108 H, Calcium 8.7, Total Bilirubin 0.4, AST 42, ALT 63, Alkaline Phosphatase 82, Total Protein 7.0, Albumin 4.2, Globulin 2.8, Albumin/Globulin Ratio 1.5 11/16/20 07:20: Monoscreen Negative 11/16/20 08:15: Group A Strep Rapid Negative 11/16/20 08:15: Influenza Type A Ag Negative, Influenza Type B Ag Negative Result diagrams: 11/16/20 07:20 11/16/20 07:20 Orders (Tests/Meds): ED MEDICATIONS Discontinued Medications Generic Name Dose Route Start Last Admin Trade Name Jaradq PRN Reason Stop Dose Admin Sodium Chloride 1,000 mls @ 999 mls/hr 11/16/20 07:15 11/16/20 07:33 Sod Chlor 0.9% 1000ml Bag IV 11/16/20 08:15 999 mls/hr .Q1H1M ALONDRA Administration Ketorolac Tromethamine 30 mg 11/16/20 07:35 11/16/20 07:42 Ketorolac 30mg/Ml Vial IV 11/16/20 07:36 30 mg ONCE ONE Administration Methylprednisolone Sodium Succinate 125 mg 11/16/20 07:35 11/16/20 07:42 Methylprednisolone Sod Succ 125mg Vial IV 11/16/20 07:36 125 mg ONCE ONE Administration ORDERS Category Date Time Status Strep Screen Confirmation Stat Micro 11/16/20 08:15 Received - Radiology Data #1 Image(s): Chest Image Reviewed: Yes I reviewed the patient's radiology image Preliminary Findings: Normal/NAD Medical Decision
[2020-11-16 07:26] LABS: Squamous Epithelial Cell,Urine Occasional #/hpf (0-5)
[2020-11-16 07:36] LABS: Alanine Aminotransferase 63 U/L (12-78); Albumin Level 4.2 g/dl (3.5-5.0); Albumin/Globulin Ratio 1.5 (1.1-1.8); Alkaline Phosphatase 82 U/L (38-126); Aspartate Amino Transferase 42 U/L (17-59); Bilirubin,Total 0.4 mg/dl (0.2-1.3); Blood Urea Nitrogen 13 mg/dl (9-20); Calcium 8.7 mg/dl (8.4-10.2); Carbon Dioxide 23 mmol/L (22.0-30.0); Chloride 108 mmol/L (98-107); Creatinine Clearance Estimated 202 mL/min (50-200); Estimated Glomerular Filt Rate 130 ml/min (>60); GFR (African American) 157 ML/MIN (>60); Globulin 2.8 g/dL (1.3-3.2); Glucose 108 mg/dl (74-100); Sodium 138 mmol/L (136-145)
[2020-11-16 07:58] VITALS: BP 137/81; PULSE 67; RESP 16; O2SAT 98
[2020-11-16 07:58] LABS: Basophils # 0.1 K/mm3 (0-0.2); Basophils % 0.8 % (0.1-2.0); Eosinophils # 0.5 K/mm3 (0.0-0.4); Eosinophils % 5.8 % (0.1-12.0); Hematocrit 43.1 % (42.0-52.0); Hemoglobin 14.7 g/dL (14.1-18.0); Lymphocytes # 3.5 K/mm3 (0.7-4.5); Lymphocytes % 38.2 % (10-50); Mean Corpuscular HGB Conc 34.1 g/dL (31.8-35.4); Mean Corpuscular Volume 87.8 fl (80-94); Mean Platelet Volume 7.8 fl (7.4-10.4); Monocytes # 0.4 K/mm3 (0.1-1.0); Monocytes % 4.3 % (1.7-9.3); Neutrophils # 4.7 K/mm3 (1.8-7.8); Platelet Count 244 K/mm3 (142-424); Red Cell Distribution Width 12.9 % (11.5-17.5); White Blood Count 9.2 K/mm3 (4.8-10.8)
[2020-11-16 08:11] LABS: Monoscreen (Rapid) Negative (Negative)
[2020-11-16 08:42] LABS: Strep Scrn Group A (Rapid) Negative (Negative)
[2020-11-16 09:36] VITALS: BP 138/83; PULSE 79; RESP 16; TEMP 36.7; O2SAT 98
== END 2020-11-16 09:42 | disposition home or self-care (01) ==
PROVIDERS: Emergency Provider Emergency Medicine; PCP Internal Medicine Adolescent Medicine
DX: J06.9 Acute upper respiratory infection, unspecified (principal); F17.210 Nicotine dependence, cigarettes, uncomplicated
CPT/HCPCS: 71046; 80053; 81001; 85025; 86318; 87275; 87276; 87430; 96365; 99282

== ENCOUNTER → 2020-11-19 10:56 | Outpatient (CLI) | payer BC, SELFPAY ==
[2020-11-19 14:03] LABS: Troponin I < 0.01 ng/ml (0.00-0.034)
[2020-11-19 15:39] LABS: Hemoglobin A1C 5.5 % (4.0-6.0)
== END ==
PROVIDERS: Visit Provider Nurse Practitioner Family
DX: I10 Essential (primary) hypertension (principal); R07.89 Other chest pain; R73.09 Other abnormal glucose
CPT/HCPCS: 36415; 83036; 84484

== ENCOUNTER 2020-12-14 22:46 | Emergency (ER) | payer BC, SELFPAY ==
[2020-12-14 23:01] VITALS: BP 149/100; PULSE 81; RESP 18; TEMP 36.7; O2SAT 98; BMI 34.7
--- NOTE | 2020-12-14 23:15 | HMH.EDBACK ---
ED Disposition Clinical Impression: Lumbar radiculopathy Disposition: Home, Self-Care Condition on Discharge: Good Instructions: DI for Back Pain With Sciatica Additional Instructions: use meds and see pcp for follow up Prescriptions: predniSONE [Prednisone 20mg Tab] 20 mg PO BID #10 tab Transmission Status: Pending to [facility] Ketorolac Tromethamine [Toradol 10mg tablet] 10 mg PO Q6HP PRN #10 tab MDD 40mg/day PRN Reason: Moderate To Severe Pain Transmission Status: Pending to [facility] Referrals: Vicente Rico MD [Primary Care Provider] - - Critical Care Critical Care Time: No Attestation: On 12/14/20, the high probability of a clinically significant, sudden or life threatening deterioration of the following system(s) required my full and direct attention, intervention and personal management. The time I documented below is in addition to time spent performing reported procedures but includes the following listed in this critical care notation. Medical Decision Making - Medical Records Medical records reviewed: Yes: I reviewed the patient's medical records. - Dl Inquiry Pt receiving controlled substance: No Vital Signs: 12/14/20 23:01 Temperature 98.1 F Temperature Source Oral Pulse Rate [Right Brachial] 81 Respiratory Rate 18 Blood Pressure [Right Arm] 149/100 H Blood Pressure Mean [Right Arm] 116 Blood Pressure Source [Right Arm] Automatic Cuff Blood Pressure Position [Right Arm] Sitting 02 Sat by Pulse Oximetry 98 Oxygen Delivery Method Room Air - Lab Data Lab results reviewed: Yes: I reviewed the patient's lab results. Medical Decision Narrative: acute sciatica with no fever will treat at this time and refer to pcp Back Pain HPI - General Chief Complaint: Back Pain/Injury Stated Complaint: lower back pain Time Seen by Provider: 12/14/20 23:15 Mode of Arrival: Family Vehicle Source of Information: Patient, Medical Record Limitations: No Limitations Description of Symptoms (Recalled from ER Triage Doc. by RN): pt reports right flank pain that extends down his right leg and began yesterday while doing yard work . pt denies lifting or pulling on anything particular heavy, nor any additional strenuous activity. pt denies any bowel or bladder issues. has a history of low back pain issues. denies any other complaints. - History of Present Illness HPI Narrative: pt with acute rt sided back pain with rad to rt post leg - no fever and no rash and no gu sx - no sig hx of back issues - had xray about 2 yrs ago Complaint: back pain Onset (ago): hour(s) Duration: constant Similar Symptoms Previously: Yes Location: lumbar spine Severity: moderate Radiation: right leg Relieving factors: movement Associated symptoms: denies other symptoms - Related Data Home Medications Medication Instructions Recorded Confirmed esomeprazole magnesium 20 mg 20 mg PO QDAY cap 07/18/17 09/01/19 capsule,delayed release predniSONE [Prednisone 20mg 20 mg PO BID 12/30/19 Tab] Previous Rx's Medication Instructions Recorded Albuterol Sulfate [Albuterol HFA 2 puffs IH Q6HP PRN #1 inh 09/01/19 Inhaler] Azithromycin [Zithromax 250mg 250 mg PO DIRECTED #6 tab 11/16/20 tab] Ketorolac Tromethamine [Toradol 10 mg PO Q6HP PRN #10 tab MDD 12/14/20 10mg tablet] 40mg/day predniSONE [Prednisone 20mg 20 mg PO BID #10 tab 12/14/20 Tab] Allergies Allergy/AdvReac Type Severity Reaction Status Date / Time No Known Allergies Allergy Verified 12/30/19 13:26 [facility] History - Hepatitis A Screen Drug use history?: No High risk sexual behaviors?: No History of sexually transmitted infection?: No Currently employed?: No Childcare worker?: No Do you have indoor plumbing?: Yes Do you have electricity?: Yes Attestation statement:: This patient has been screened for Hepatitis A risk factors. I have reviewed the patient
[2020-12-14 23:35] VITALS: BP 142/100; PULSE 81; RESP 18; TEMP 36.8; O2SAT 98
== END 2020-12-14 23:37 | disposition home or self-care (01) ==
PROVIDERS: Emergency Provider Emergency Medicine; PCP Internal Medicine Adolescent Medicine
DX: M54.16 Radiculopathy, lumbar region (principal); F17.210 Nicotine dependence, cigarettes, uncomplicated; X50.0XXA Overexertion from strenuous movement or load, initial encounter; Y92.017 Garden or yard in single-family (private) house as the place of occurrence of the external cause
CPT/HCPCS: 96372; 99281

== ENCOUNTER → 2021-03-08 11:37 | Outpatient (CLI) | payer BC, SELFPAY | PROVIDERS: PCP Internal Medicine Adolescent Medicine; Visit Provider Nurse Practitioner | DX: U07.1 COVID-19 (principal) | CPT/HCPCS: C9803; U0003; U0005 ==

== ENCOUNTER 2021-04-04 13:03 | Emergency (ER) | payer BC, SELFPAY ==
[2021-04-04 14:40] VITALS: BP 133/89; PULSE 77; RESP 20; TEMP 36.3; O2SAT 99; BMI 34.8
--- NOTE | 2021-04-04 15:06 | HMH.EDUTC ---
[facility] [place] Disposition Clinical Impression: Low back pain Qualifiers: Chronicity: unspecified Back pain laterality: right Sciatica presence: without sciatica Qualified Code(s): M54.50 - Low back pain, unspecified Disposition: Home, Self-Care Condition on Discharge: Good Instructions: Low Back Pain, DI for Low Back Pain Additional Instructions: *Ibuprofen rashad 6 hours with meal as needed for pain/inflammation *Remember you had a Toradol shot in the clinic today, which is similar to Motrin *Not additional anti-inflammatory like motrin, aleve, advil with the above amount of ibuprofen. You can still take Tylenol every 4 hours as needed if you need something else for pain *Ice 20 minutes every 2 hours for the first 48 hours after the initial injury followed by moist heat every 20 minutes 3-4 times a day to affected area *Muscle relaxer every 8 hours as needed for muscle spasms but remember, it WILL cause drowsiness You cannot take it and drive, operate machinery or care for small children. *Keep this area active, no movement leads to more stiffness, However take it easy and avoid heavy lifting pushing or pulling *Follow up with you family doctor if no improvement for further treatment Prescriptions: predniSONE [Deltasone 10mg tablet] 10 mg PO BID #10 tab Transmission Status: Received by [facility] Etodolac 200 mg PO TID PRN #20 cap PRN Reason: Moderate Pain Transmission Status: Received by [facility] Cyclobenzaprine HCl [Flexeril 10mg tablet] 10 mg PO TID PRN #15 tab PRN Reason: Muscle Spasm Transmission Status: Received by [facility] Referrals: Vicente Rico MD [Primary Care Provider] - Forms: Work/School Release Medical Decision Making - Dl Inquiry Pt receiving controlled substance: No Dl was queried for this patient: No Vital Signs: 04/04/21 14:40 04/04/21 15:21 Temperature 97.4 F L 97.4 F L Temperature Source Temporal Artery Scan Pulse Rate 77 Pulse Rate [Right Brachial] 77 Respiratory Rate 20 20 Blood Pressure 133/89 Blood Pressure [Left Arm] 133/89 Blood Pressure Mean [Left Arm] 103 Blood Pressure Source [Left Arm] Automatic Cuff Blood Pressure Position [Left Arm] Sitting 02 Sat by Pulse Oximetry 99 Oxygen Delivery Method Room Air Orders (Tests/Meds): ED MEDICATIONS Discontinued Medications Generic Name Dose Route Start Last Admin Trade Name Cheo PRN Reason Stop Dose Admin Ketorolac Tromethamine 60 mg 04/04/21 15:13 04/04/21 15:18 Ketorolac 60mg/2ml Vial IM 04/04/21 15:14 60 mg ONCE ONE Administration Methylprednisolone Sodium Succinate 125 mg 04/04/21 15:13 04/04/21 15:19 Methylprednisolone Sod Succ 125mg Vial IM 04/04/21 15:14 125 mg ONCE ONE Administration [facility] [place] HPI - General Stated complaint: lower back pain Time Seen by Provider: 04/04/21 15:06 Mode of Arrival: Ambulatory Source of Information: Patient Limitations: No Limitations Description of Symptoms (Recalled from Triage Doc. by RN): PATIENT C/O LOWER BACK PAIN THAT STARTED APPROX 0400 THIS AM. NO KNOWN INJURY. REPORTS TAKING IBUPROFEN AT 0900 HEENT Symptoms (Recalled from RN notes): No Resp Symptoms (Recalled from RN notes): No Skin Symptoms (Recalled from RN notes): No MS Symptoms (Recalled from RN notes): Yes Functional Status (Recalled from RN notes): WNL - History of Present Illness Provider Complaint: Patient states that he has a history of low back pain and problems States that he was getting out of bed this morning and felt something pull in his right lower back area and has been having low back pain with spasms ever since Denies loss of control of bowel or bladder and denies known injury - Related Data Previous Rx's Medication Instructions Recorded Cyclobenzaprine HCl [Flexeril 10mg 10 mg PO TID PRN #15 tab 04/04/21 tablet] Etodolac 200 mg PO TID PRN #20 cap 04/04/21 predniSONE [Deltasone 10mg tablet] 10 mg PO BID #10 tab 04/04/21
[2021-04-04 15:21] VITALS: BP 133/89; PULSE 77; RESP 20; TEMP 36.3; O2SAT 99
== END 2021-04-04 15:42 | disposition home or self-care (01) ==
PROVIDERS: Emergency Provider Nurse Practitioner; PCP Internal Medicine Adolescent Medicine
DX: M54.50 Low back pain, unspecified (principal)
CPT/HCPCS: 96372; 99202; G0463

== ENCOUNTER 2021-04-22 10:02 | Emergency (ER) | payer BC, OTHER, SELFPAY ==
[2021-04-22 10:04] VITALS: BP 151/86; PULSE 92; RESP 16; TEMP 37; O2SAT 97; BMI 34.0
--- NOTE | 2021-04-22 10:19 | HMH.EDUTC ---
[facility] [place] Disposition Clinical Impression: Low back pain Qualifiers: Chronicity: unspecified Back pain laterality: left Sciatica presence: with sciatica Sciatica laterality: sciatica of left side Qualified Code(s): M54.42 - Lumbago with sciatica, left side Disposition: Home, Self-Care Condition on Discharge: Good Instructions: Low Back Pain, DI for Low Back Pain, DI for Sciatica Additional Instructions: *Ibuprofen rashad 6 hours with meal as needed for pain/inflammation *Remember you had a Toradol shot in the clinic today, which is similar to Motrin *Not additional anti-inflammatory like motrin, aleve, advil with the above amount of ibuprofen. You can still take Tylenol every 4 hours as needed if you need something else for pain *Ice 20 minutes every 2 hours for the first 48 hours after the initial injury followed by moist heat every 20 minutes 3-4 times a day to affected area *Muscle relaxer every 8 hours as needed for muscle spasms but remember, it WILL cause drowsiness You cannot take it and drive, operate machinery or care for small children. *Keep this area active, no movement leads to more stiffness, However take it easy and avoid heavy lifting pushing or pulling *Follow up with you family doctor if no improvement for further treatment Prescriptions: Etodolac 200 mg PO TID PRN #15 cap PRN Reason: Moderate Pain Transmission Status: Pending to [facility] Cyclobenzaprine HCl [Flexeril 10mg tablet] 10 mg PO TID PRN #15 tab PRN Reason: Muscle Spasm Transmission Status: [facility] to [facility] Referrals: Vicente Rico MD [Primary Care Provider] - Forms: Work/School Release Medical Decision Making - Dl Inquiry Pt receiving controlled substance: No Dl was queried for this patient: No Vital Signs: 04/22/21 10:04 Temperature 98.6 F Temperature Source Oral Pulse Rate [Left] 92 H Respiratory Rate 16 Blood Pressure [Right Arm] 151/86 H Blood Pressure Mean [Right Arm] 107 02 Sat by Pulse Oximetry 97 Orders (Tests/Meds): ED MEDICATIONS Discontinued Medications Generic Name Dose Route Start Last Admin Trade Name Freq PRN Reason Stop Dose Admin Ketorolac Tromethamine 60 mg 04/22/21 10:57 04/22/21 11:17 Ketorolac 60mg/2ml Vial IM 04/22/21 10:58 60 mg ONCE ONE Administration Methylprednisolone Sodium Succinate 125 mg 04/22/21 10:57 04/22/21 11:17 Methylprednisolone Sod Succ 125mg Vial IM 04/22/21 10:58 125 mg ONCE ONE Administration Medical Decision Narrative: Patient reports that he has taken all the medication he was given previously for back pain/muscle spasms and then the pain returned on the other side [facility] [place] HPI - General Stated complaint: lower back pain Time Seen by Provider: 04/22/21 10:20 Mode of Arrival: Ambulatory Source of Information: Patient Limitations: No Limitations Description of Symptoms (Recalled from Triage Doc. by RN): pt c/o lower back pain that radiates down his L side all the way down his L leg. this has been ongoing for two days. no injury noted. HEENT Symptoms (Recalled from RN notes): No Resp Symptoms (Recalled from RN notes): No Skin Symptoms (Recalled from RN notes): No MS Symptoms (Recalled from RN notes): Yes (lower back pain radiating down L leg) Functional Status (Recalled from RN notes): na - History of Present Illness Provider Complaint: Patient states that he was seen several weeks ago when he was having lower back pain that was radiating down his right side and right upper leg State that he was given medication but he has took them all and now having pain on the left side of lower back that is radiating down left buttock and leg State that it started about 2 days ago and hasnt improved State that he took a Tylenol 3 earlier but didnt help much - Related Data Previous Rx's Medication Instructions Recorded Cyclobenzaprine HCl [Flexeril 10mg 10 mg PO TID PRN #15 tab 04/04/21 tablet] Etodolac 200 mg PO TID PRN
--- NOTE | 2021-04-22 10:26 | XR_ITS ---
PROCEDURE: XR LUMBAR SPINE MIN 4V CLINICAL INDICATION: low back pain COMPARISON: CR Lumbar spine from 01/13/2019 FINDINGS: There is mild straightening of the normal curvature suggesting mild muscle spasm. All lumbar vertebrae appear intact. There is very minor disc space narrowing at L4-5 the remaining disc spaces appear normal. The SI joints appear normal. 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 Praveen Chen MD 04/22/2021 10:48 Dr. Praveen Chen MD in [place] 04/22/2021 10:48
[2021-04-22 11:28] VITALS: BP 151/86; PULSE 92; RESP 16; TEMP 37
== END 2021-04-22 11:35 | disposition home or self-care (01) ==
PROVIDERS: Emergency Provider Nurse Practitioner; PCP Internal Medicine Adolescent Medicine
DX: M54.42 Lumbago with sciatica, left side (principal); F17.210 Nicotine dependence, cigarettes, uncomplicated
CPT/HCPCS: 72110; 96372; 99202; G0463

== ENCOUNTER → 2021-05-10 09:56 | Outpatient (POV) | payer BC, OTHER, SELFPAY ==
--- NOTE | 2021-05-10 11:00 | HMH.PMCON ---
Assessment and Plan (1) Left low back pain Status: Acute Category: Medical Code(s): M54.50 - Low back pain, unspecified (2) Sacroiliitis Status: Acute Category: Medical Code(s): M46.1 - Sacroiliitis, not elsewhere classified - Assessment and plan all Dx Assessment and Plan for all problems:: Patient was referred for left low back pain with radiation into left buttock, left hip and left leg stopping at knee. He is try conservative therapies of oral medications?diclofenac and muscle relaxants with minimal relief. He is also tried physical therapy with home stretching. He has not gotten any relief at this point. We will schedule patient for left SI joint injection and plan to see him back afterwards for further evaluation. He does have a positive Loli's, compression, distraction, and compression test today on the left side. Possible side effects of corticosteroids have been discussed with the patient. Risks and benefits of the procedure have been explained to the patient. Patient would like to proceed with the procedure. Patient has been instructed to contact the clinic with any concerns before the next appointment. Dr. Regalado has reviewed this note and agrees with this plan of care. This note was dictated using voice recognition software and make contain errors or omissions. HPI - Data of Consult Patient: new to practice Consult date: 05/10/21 Requesting Physician: Angeline Nguyen APRN - Consult Narrative Reason for consult: Left low back pain, left hip pain, left leg pain History of present illness: Mr. Ragland is a 35 year old male who presents today for consultation for new onset left low back pain, left buttock pain, left hip pain and left leg pain. He reports the pain presented approximately 1 month ago. He denies any recent trauma, falls, or accidents causing the pain. Patient says that he does have a very strenuous job for which he does a great deal of walking. He says that standing and walking does worsen his pain. Sitting for short periods help the pain, but prolonged sitting worsen the pain. He has a bruise-like sensation to his left low back and left buttock area. He says palpation to the area does worsen the pain as well. He denies any surgical history or fractures to his lumbar spine. He does rate his pain a 6 out of 10. He was ordered diclofenac as well as oral steroids with limited relief. He has also been ordered cyclobenzaprine with minimal relief. He does have x-ray lumbar spine that did show mild muscle spasming along with early degenerative disc disease. Otherwise, x-ray was unremarkable. The patient does continue with home stretching and ice and heat therapies. He does take anti-inflammatories?diclofenac prescribed by his PCP. He does report that he has had physical therapy for more than 6 weeks with limited relief. He has gotten no relief at this point. CC: Angeline Nguyen APRN [facility] History I have reviewed the patient's past medical history: Yes Medical History: Denies:: Cancer, Diabetes Mellitus Type 1, Diabetes Mellitus Type 2, MRSA *Have you ever received a pneumonia vaccine?: No *Have you received a flu vaccine this season?: No Other Surgeries: Yes: Appendectomy, Cholecystectomy, Other (gallbladder removal) Amputation: No Fractures: Yes (right ankle previosuly) - *Social History Smoking Status: Current every day smoker Tobacco Type: cigarettes, smokeless tobacco # Packs/Day (cigarettes): 1 Alcohol Intake: never Alcohol Intake Frequency:: a few times a week Substance Use Type: denies use *Occupational Status:: employed Housing: house Household Members: family *Travel in the last 8 weeks: None Family Hx:: No significant family history Review of Systems - Review of Systems Review of Systems General: No recent weight changes, no fever, no sleep disturbances Respiratory: No cough, no shortness of air, no recurring pulmonary infections Cardiovascular/peripheral vascular: No chest
[2021-05-10 11:07] VITALS: BP 178/89; PULSE 83; RESP 18; O2SAT 98; BMI 34.0
== END ==
PROVIDERS: Visit Provider Clinical Nurse Specialist Family Health
DX: M54.50 Low back pain, unspecified (principal); M46.1 Sacroiliitis, not elsewhere classified
CPT/HCPCS: 99202; G0463

== ENCOUNTER 2021-05-21 12:41 | Emergency (ER) | payer BC, OTHER, SELFPAY ==
[2021-05-21 13:10] VITALS: BP 126/91; PULSE 89; RESP 19; TEMP 36.8; O2SAT 98; BMI 36.0
--- NOTE | 2021-05-21 13:57 | HMH.EDUTC ---
[facility] [place] Disposition Clinical Impression: Upper respiratory infection Qualifiers: URI type: unspecified URI Qualified Code(s): J06.9 - Acute upper respiratory infection, unspecified Disposition: Home, Self-Care Condition on Discharge: Good Instructions: Sore Throat, DI for Cough -- Adult, DI for COVID-19 (Suspected or Confirmed ), Preventing the Spread of Coronavirus Discharge Instructions Additional Instructions: *Monitor Temp, Over the counter Motrin or Tylenol as directed/as needed Tylenol every 4 hours and Motrin every 6 hours (as long as your family doctor has told you that you can take it) for fever or pain. and straight to ER if unable to lower temp less than 101.0 after medication given *Warm salt water gargles may help to soothe the throat *Throat Lozenges *Warm fluids like tea with honey may help to soothe the throat *Sleep elevated *Humidifier/Vaporizer Follow up IMMEDIATELY for new or worsening symptoms or no Noticeable improvement over the next 48-72 hours. 911 for difficulty breathing or swallowing You were tested for today for COVID19 your test result should be back in the next 24-48 hours, you may check for your result on the [facility] My Health portal if you have trouble logging on you may call for assistance or get you results in person from Health Information office Sunday 8am 430pm You was given a handout with instructions for Self Quarantine and Self isolation for while you wait on test results and what to do if they are positive If you are positive the Health Dept will be contacting you also Prescriptions: predniSONE [Prednisone 20mg Tab] 20 mg PO BID 5 Days #10 tab Transmission Status: Pending to [id number] Azithromycin [Z-Kasi 250mg Tab] 250 mg PO DIRECTED #6 tab Transmission Status: Pending to [id number] Referrals: Vicente Rico MD [Primary Care Provider] - As needed Forms: Work/School Release Time of Disposition: 14:08 Medical Decision Making - Ld Inquiry Pt receiving controlled substance: No Dl was queried for this patient: No Vital Signs: 05/21/21 13:10 Temperature 98.3 F Temperature Source Oral Pulse Rate [Right Brachial] 89 Respiratory Rate 19 Blood Pressure [Right Arm] 126/91 H Blood Pressure Mean [Right Arm] 102 Blood Pressure Source [Right Arm] Automatic Cuff Blood Pressure Position [Right Arm] Sitting 02 Sat by Pulse Oximetry 98 Oxygen Delivery Method Room Air - Lab Data Lab results reviewed: Yes: I reviewed the patient's lab results. Orders (Tests/Meds): ORDERS Category Date Time Status Full Resp Panel w/COVID ([facility]) Routine Lab 05/21/21 13:20 Ordered [facility] UTC HPI - General Stated complaint: covid symptoms Time Seen by Provider: 05/21/21 13:57 Mode of Arrival: Ambulatory Source of Information: Patient Limitations: No Limitations Description of Symptoms (Recalled from Triage Doc. by RN): PATIENT C/O DRY COUGH, BODY ACHES, AND NAUSEA X 2 DAYS HEENT Symptoms (Recalled from RN notes): No Resp Symptoms (Recalled from RN notes): Yes Skin Symptoms (Recalled from RN notes): No MS Symptoms (Recalled from RN notes): No Functional Status (Recalled from RN notes): WNL - History of Present Illness Provider Complaint: Patient states that he has been having sinus pain and pressure along with cough, pressure behind his eyes, dry cough, nausea, and body aches States that today he was still feeling bad so he came in to get checked and wanted to get tested for COVID also - Related Data Previous Rx's Medication Instructions Recorded Etodolac 200 mg PO TID PRN #20 cap 04/04/21 predniSONE [Deltasone 10mg tablet] 10 mg PO BID #10 tab 04/04/21 Etodolac 200 mg PO TID PRN #15 cap 04/22/21 Tizanidine HCl [Zanaflex 4mg 4 mg PO BID #60 tab 05/10/21 tab] Azithromycin [Z-Kasi 250mg Tab] 250 mg PO DIRECTED #6 tab 05/21/21 predniSONE [Prednisone 20mg 20 mg PO BID 5 Days #10 tab 05/21/21 Tab] Allergies Allergy/Adv
[2021-05-21 14:08] VITALS: BP 126/91; PULSE 89; RESP 19; TEMP 36.8; O2SAT 98
[2021-05-21 14:20] LABS: Adenovirus,PCR Not Detected (NotDetected); Bordetella Pertussis Not Detected (NotDetected); Chlamydophila Pneumoniae, PCR Not Detected (NotDetected); Coronavirus 229E Not Detected (NotDetected); Coronavirus NL63 Not Detected (NotDetected); Coronavirus OC43 Not Detected (NotDetected); Coronovirus HKU1,PCR Not Detected (NotDetected); Human Metapneumovirus Not Detected (NotDetected); Influenza A, PCR Not Detected (NotDetected); Influenza AH1, 2009 Not Detected (NotDetected); Influenza AH1, PCR Not Detected (NotDetected); Influenza AH3,PCR Not Detected (NotDetected); Influenza B, PCR Not Detected (NotDetected); Mycoplasma Pneumoniae, PCR Not Detected (NotDetected); Parainfluenza 1, PCR Not Detected (NotDetected); Parainfluenza 2, PCR Not Detected (NotDetected); Parainfluenza 3, PCR Not Detected (NotDetected); Parainfluenza 4, PCR Not Detected (NotDetected); Respiratory Syncytial Virus Not Detected (NotDetected); Rhinovirus/Enterovirus Not Detected (NotDetected)
[2021-05-21 15:45] LABS: Coronavirus 19, PCR Detected (NotDetected)
--- NOTE | 2021-05-24 13:14 | INFXCTL.NOTE ---
Notified via phone call COVID-19 (+). Patient stated had already received results and quarantine in place. ----MARGY Zaragoza
== END 2021-05-21 14:13 | disposition home or self-care (01) ==
PROVIDERS: Emergency Provider Nurse Practitioner; PCP Internal Medicine Adolescent Medicine
DX: U07.1 COVID-19 (principal); J06.9 Acute upper respiratory infection, unspecified
CPT/HCPCS: 87581; 87632; 87798; 99202; C9803; G0463; U0003; U0005

== ENCOUNTER 2021-06-29 08:25 | Emergency (ER) | payer BC, OTHER, SELFPAY ==
[2021-06-29 08:26] VITALS: BP 158/105; PULSE 74; RESP 16; TEMP 36.7; O2SAT 96; BMI 304.4
--- NOTE | 2021-06-29 08:33 | CT_ITS ---
FINAL REPORT TECHNIQUE: Axial images were performed through the lumbar spine by computed tomography. Sagittal reconstruction images were also performed. This study was performed with techniques to keep radiation doses as low as reasonably achievable, (ALARA). Individualized dose reduction techniques using automated exposure control or adjustment of mA and/or kV according to the patient''s size were employed. CLINICAL HISTORY: trauma FINDINGS: There is no acute fracture. Sagittal reconstruction images demonstrate no subluxation. There is moderate disc space narrowing at L5-S1 with vacuum disc phenomenon. T12-L1: No significant central canal stenosis or neural foraminal narrowing. L1-L2: No significant central canal stenosis or neural foraminal narrowing. L2-L3: No significant central canal stenosis or neural foraminal narrowing. L3-L4: Mild diffuse disc bulge with mild bilateral neural foraminal narrowing. L4-L5: Large left paracentral disc protrusion/extrusion with high-grade compromise on the left lateral recess. Moderate bilateral neural foraminal narrowing. L5-S1: Endplate hypertrophy with moderate left and mild right neural foraminal narrowing. IMPRESSION: Large left paracentral disc protrusion/extrusion at L4-L5 with high-grade compromise on the left lateral recess and moderate bilateral neural foraminal narrowing. No acute osseous abnormality. Reviewed, Interpreted and Dictated by Malachi Godoy MD Transcribed by Sha Zurita Authenticated by Malachi Godoy MD on 06/29/2021 10:13:17 AM [facility]
--- NOTE | 2021-06-29 09:49 | HMH.EDBACK ---
ED Disposition Clinical Impression: Herniated lumbar intervertebral disc Disposition: Home, Self-Care Condition on Discharge: Good Instructions: DI for Herniated Disc Prescriptions: Ibuprofen [Ibuprofen 800mg Tablet] 800 mg PO TIDP PRN #20 tab PRN Reason: Moderate Pain Transmission Status: Pending to [facility] methylPREDNISolone [Medrol 4mg tab] 4 mg PO DIRECTED #21 tab Transmission Status: Pending to [facility] methocarbamoL [Methocarbamol] 1,000 mg PO TID 10 Days #60 tab Transmission Status: Pending to [facility] Referrals: Vicente Rico MD [Primary Care Provider] - Jesus Herring [Referring] - - Critical Care Critical Care Time: No Attestation: On 06/29/21, the high probability of a clinically significant, sudden or life threatening deterioration of the following system(s) required my full and direct attention, intervention and personal management. The time I documented below is in addition to time spent performing reported procedures but includes the following listed in this critical care notation. Medical Decision Making - Medical Records Medical records reviewed: Yes: I reviewed the patient's medical records. - Dl Inquiry Pt receiving controlled substance: No Vital Signs: 06/29/21 08:26 Temperature 98.1 F Temperature Source Oral Pulse Rate [Right Radial] 74 Respiratory Rate 16 Blood Pressure [Right Arm] 158/105 H Blood Pressure Mean [Right Arm] 122 Blood Pressure Source [Right Arm] Automatic Cuff Blood Pressure Position [Right Arm] Sitting 02 Sat by Pulse Oximetry 96 Oxygen Delivery Method Room Air Orders (Tests/Meds): ED MEDICATIONS Discontinued Medications Generic Name Dose Route Start Last Admin Trade Name Freq PRN Reason Stop Dose Admin Ketorolac Tromethamine 30 mg 06/29/21 08:33 06/29/21 08:44 Ketorolac 30mg/Ml Vial IM 06/29/21 08:34 30 mg ONCE ONE Administration Methocarbamol 1,000 mg 06/29/21 08:33 06/29/21 08:43 Methocarbamol 500mg Tablet PO 06/29/21 08:34 1,000 mg ONCE STA Administration ORDERS Category Date Time Status CT lumbar spine wo con Stat Cat Scan 06/29/21 08:33 Taken - CT Data CT Scan: L-Spine Time Received: 10:[address] Reviewed: Yes: I have reviewed the patient's CT results, I have viewed the radiologist's interpretation Findings Narrative: Degenerative changes with large disc protrusion at L4-L5 region concerning for disc herniation - Reevaluation(s) Time: 10:20 Reevaluation #1: On reevaluation, patient is feeling better. Findings are consistent with herniated disc in the lower lumbar spine. These do sound consistent with the patient's symptoms. He has no neurologic deficit. No saddle anesthesia. No evidence of epidural abscess or spinal compression. Patient be discharged with analgesics. Needs follow-up with spinal specialist and PCP. Given strict return precautions. Verbalized understanding. Medical Decision Narrative: 35-year-old male presented with some lower back pain after slip and fall. Imaging will be obtained. Patient provided analgesics. Back Pain HPI - General Chief Complaint: Back Pain/Injury Stated Complaint: AO [id number] back pain, home fall Time Seen by Provider: 06/29/21 08:30 Mode of Arrival: Ambulatory Limitations: No Limitations Description of Symptoms (Recalled from ER Triage Doc. by RN): pt reports lower back pain r/t a slip and fall this morning outside of his home. Pt denies numbness/tingling or decreased sensation. - History of Present Illness HPI Narrative: 35-year-old male presented to the emergency department with some lower back pain. Patient states that he slipped and he was walking out of his house this morning getting into his truck. He fell onto his back. Is complaining of some back pain in the middle and the right lower side. Is dull in nature. Worse when he walks. Does not take anything for the pain. Denies
[2021-06-29 10:40] VITALS: BP 158/105; PULSE 74; RESP 16; TEMP 36.7; O2SAT 96
== END 2021-06-29 10:40 | disposition home or self-care (01) ==
PROVIDERS: Emergency Provider Emergency Medicine; PCP Internal Medicine Adolescent Medicine
DX: M51.26 Other intervertebral disc displacement, lumbar region (principal); W01.0XXA Fall on same level from slipping, tripping and stumbling without subsequent striking against object, initial encounter
CPT/HCPCS: 72131; 96372; 99282

== ENCOUNTER 2021-07-26 10:23 | Outpatient (RCR) | payer BC, OTHER, SELFPAY ==
--- NOTE | 2021-07-26 11:54 | HMH.PTOPEV ---
PT Outpatient Evaluation Rehab PT Outpatient Evaluation Start: 07/26/21 10:50 Freq: Status: Active Protocol: Document 07/26/21 10:51 ANABELLE (Rec: 07/26/21 11:53 PDESEROUX [id number]) Electronically Signed By Alex Villegas, PT 07/26/21 10:51 Outpatient Therapy Subjective History Subjective History Pt. is a 35 year old male who presents to [facility] for the initial evaluation this date(07/26/21) w/ c/o subacute and constant lumbar and RLE P !, numbness, weakness, and stiffness of insidious onset since the end of May ( 2020). Pt. reports having similar symptoms intermittently for 10 years, but states symptoms would usually resolve themselves. However, pt. states current symptoms are progressively worsening. Recent diagnostic imaging(CT scan) positive for a bulging disc per pt. report. Pt. denies having injections for current pathology. Pt. reports having trouble w/ passing stool since two weeks ago, Physical Therapist instructed pt. to go to the ER if worsens. Pt. reports symptoms in the lumbar spine are constant, but RLE radicular P! is intermittent. Pt. reports symptoms worsen w/ prolonged standing, sitting, and ambulation. Pt. reports having some symptom relief w/ sidelying. Pt. reports he is scheduled for an MRI this coming (07/28/21). Pt. RTMD(Neurosurgeon) on . 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 Current medications include Nexium. PMH includes a Cholecystectomy and an Appendectomy. Pt. denies a history of cancer( self), denies pacemaker,
== END 2021-09-07 13:56 | disposition home or self-care (01) ==
LOC: PT.CARL 10:23
PROVIDERS: PCP Internal Medicine Adolescent Medicine; Visit Provider Nurse Practitioner Family
DX: M54.41 Lumbago with sciatica, right side (principal); M51.26 Other intervertebral disc displacement, lumbar region
CPT/HCPCS: 97163

== ENCOUNTER 2022-03-28 06:50 | Emergency (ER) | payer BC, OTHER, SELFPAY ==
[2022-03-28 06:51] VITALS: BP 158/88; PULSE 92; RESP 16; TEMP 36.6; O2SAT 98; BMI 34.0
[2022-03-28 07:10] LABS: Microscopic, Urine URINE MICROSCOPIC (MICROSCOPIC)
--- NOTE | 2022-03-28 07:10 | CT_ITS ---
FINAL REPORT CLINICAL HISTORY: LLQ PAIN X1 DAY. FINDINGS: CT OF THE ABDOMEN AND PELVIS WITH CONTRAST Axial CT images of the abdomen and pelvis were obtained after the administration of intravenous contrast. Coronal reformatted images were also obtained and reviewed.This study was performed with techniques to keep radiation doses as low as reasonably achievable (ALARA). Individualized dose reduction techniques using automated exposure control or adjustment of mA and/or kV according to the patient's size were employed. Abdomen: There is a calcified granuloma in the right lung base.. The heart is normal in size. The liver is fatty infiltrated. The gallbladder is surgically absent. The spleen is unremarkable. No adrenal mass is present. The pancreas has an unremarkable appearance. The kidneys are normal, without evidence of mass or hydronephrosis. The aorta is normal in caliber. There is no free fluid or adenopathy. No mass or abnormal fluid collection is seen. Pelvis: The appendix is not well-visualized. The urinary bladder is unremarkable. There is descending and sigmoid colon diverticulosis. There is stranding adjacent to the proximal sigmoid colon consistent with acute diverticulitis. There is no bowel obstruction, pneumoperitoneum, or abscess. There is no evidence of mass or adenopathy. There are small inguinal hernias containing fat. There are small nonspecific sclerotic foci in the sacrum. IMPRESSION: Acute uncomplicated proximal sigmoid diverticulitis. Reviewed, Interpreted and Dictated by Kiet Saravia III, MD Transcribed by Sha Zurita Authenticated and [facility]
[2022-03-28 07:12] LABS: Appearance,Urine SL CLOUDY (Clear); Bilirubin,Urine Negative (Negative); Blood, Urine Negative (Negative); Color,Urine YELLOW (Yellow); Glucose,Urine (UA) Negative (Negative); Ketones,Urine Negative (Negative); Leukocyte Esterase,Urine Negative (Negative); Nitrate,Urine Negative (Negative); Protein,Urine Negative (Negative); Urobilinogen,Urine 0.2 EU/dl (0.2)
[2022-03-28 07:19] LABS: Chloride 102 mmol/L (98-107); Potassium 3.7 mmoL/L (3.5-5.1); Sodium 142 mmol/L (136-145)
[2022-03-28 07:21] LABS: Basophils # 0.2 K/mm3 (0-0.2); Basophils % 1.1 % (0.1-2.0); Blood Urea Nitrogen 13 mg/dl (9-20); Creatinine Clearance Estimated 234 mL/min (50-200); Eosinophils # 0.3 K/mm3 (0.0-0.4); Eosinophils % 2.3 % (0.1-12.0); Estimated Glomerular Filt Rate 111 ml/min (>60); GFR (African American) 134 ML/MIN (>60); Hematocrit 45.1 % (42.0-52.0); Hemoglobin 15.1 g/dL (14.1-18.0); Lymphocytes # 2.6 K/mm3 (0.7-4.5); Lymphocytes % 18.5 % (10-50); Mean Corpuscular HGB Conc 33.4 g/dL (31.8-35.4); Mean Corpuscular Hemoglobin 30.4 pg (27.0-31.2); Mean Platelet Volume 8.1 fl (7.4-10.4); Monocytes # 0.6 K/mm3 (0.1-1.0); Monocytes % 4.2 % (1.7-9.3); Neutrophils # 10.5 K/mm3 (1.8-7.8); Neutrophils % 73.9 % (37.0-80.0); Platelet Count 293 K/mm3 (142-424); Red Blood Count 4.96 M/mm3 (4.60-6.20); Red Cell Distribution Width 13.1 % (11.5-17.5); White Blood Count 14.2 K/mm3 (4.8-10.8)
[2022-03-28 07:22] LABS: Alanine Aminotransferase 61 U/L (12-78); Albumin Level 4.5 g/dl (3.5-5.0); Albumin/Globulin Ratio 1.4 (1.1-1.8); Alkaline Phosphatase 108 U/L (38-126); Anion Gap 14.7 mEq/L (5-15); Aspartate Amino Transferase 51 U/L (17-59); Bilirubin,Total 0.4 mg/dl (0.2-1.3); Carbon Dioxide 29 mmol/L (22.0-30.0); Globulin 3.3 g/dL (1.3-3.2); Glucose 129 mg/dl (74-100); Total Protein,Serum 7.8 g/dl (6.3-8.2)
--- NOTE | 2022-03-28 07:24 | PC.NURSE ---
Pt to rad.
[2022-03-28 07:31] LABS: WBC,Urine Occasional #/hpf (0-3)
[2022-03-28 07:32] LABS: Squamous Epithelial Cell,Urine Occasional #/hpf (0-5)
--- NOTE | 2022-03-28 07:40 | PC.NURSE ---
Notified Thao in the lab that a lipase has been ordered on patient.
[2022-03-28 07:52] LABS: Lipase 78 U/L (23-300)
--- NOTE | 2022-03-28 07:58 | PC.NURSE ---
pt resting updated on plan of care
--- NOTE | 2022-03-28 08:15 | HMH.EDGENADL ---
Discharge Plan Disposition Patient Disposition: Home, Self-Care Condition: Good Prescriptions Prescriptions: New metronidazole 500 mg tablet 500 mg PO Q8H 10 Days Qty: 30 0RF ciprofloxacin HCl 500 mg tablet 500 mg PO BID Qty: 20 0RF No Action prednisone 10 MG tablet 10 mg PO BID Qty: 10 0RF etodolac 200 MG capsule 200 mg PO TID PRN (Reason: Moderate Pain) Qty: 20 0RF etodolac 200 MG capsule 200 mg PO TID PRN (Reason: Moderate Pain) Qty: 15 0RF tizanidine 4 MG tablet 4 mg PO BID Qty: 60 0RF methocarbamol 500 MG tablet 1,000 mg PO TID 10 Days Qty: 60 0RF ibuprofen 800 MG tablet 800 mg PO TIDP PRN (Reason: Moderate Pain) Qty: 20 0RF methylprednisolone 4 MG tablet 4 mg PO DIRECTED Qty: 21 0RF Rx Instructions: Take as directed on package instructions azithromycin 250 MG tablet 250 mg PO DIRECTED Qty: 6 0RF Rx Instructions: Take two (2) tablets on day #1, then one (1) tablet day #2 thru #5 prednisone 20 MG tablet 20 mg PO BID 5 Days Qty: 10 0RF Referrals Follow up/Referrals: Vicente Rico MD [Primary Care Provider] - See instructions Activity Restrictions/Add. Instructions Additional Instructions/Restrictions: Additional instructions for ABDOMINAL PAIN: See your physician as soon as possible for further evaluation. Return immediately if worsening abdominal pain, vomiting, shortness of breath, fever, vomiting of blood or abdominal distention. Clinical Impressions Clinical Impression: Diverticulitis Instructions Patient Instructions: DI for Acute Abdominal Pain Discharge ED Provider: Eloy Riley General Adult HPI General Chief complaint: Abdominal Pain Stated complaint: Abdominal pain Time Seen by Provider: 03/28/22 08:05 Mode of Arrival: Ambulatory Source of Information: Patient Limitations: No Limitations Description of Symptoms (Recalled from ER Triage Doc. by RN): to ed per pvt car with c/o llq abd pain starting yesterday. pt denies any nausea, vomiting, diarrhea, fever, chills. pt denies any radiation of pain. History of Present Illness HPI narrative: 2-day history of left lower quadrant pain. No other associated symptoms. The pain is constant. The pain feels similar to a previous episode of diverticulitis. He is able to eat and drink. The pain increases with bowel movements, but no diarrhea or blood in stool. No fever, no urinary symptoms. Prior history of cholecystectomy and appendectomy. Related Data Previous Rx's Medication Instructions Recorded etodolac 200 mg capsule 200 mg PO TID PRN Moderate Pain 04/04/21 #20 caps prednisone 10 mg tablet 10 mg PO BID #10 tabs 04/04/21 etodolac 200 mg capsule 200 mg PO TID PRN Moderate Pain 04/22/21 #15 caps tizanidine 4 mg tablet 4 mg PO BID #60 tabs 05/10/21 azithromycin 250 mg tablet 250 mg PO DIRECTED #6 tabs 05/21/21 prednisone 20 mg tablet 20 mg PO BID 5 days #10 tabs 05/21/21 ibuprofen 800 mg tablet 800 mg PO TIDP PRN Moderate Pain 06/29/21 #20 tabs methocarbamol 500 mg tablet 1,000 mg PO TID 10 days #60 tabs 06/29/21 methylprednisolone 4 mg tablet 4 mg PO DIRECTED #21 tabs 06/29/21 ciprofloxacin HCl 500 mg tablet 500 mg PO BID #20 tabs 03/28/22 metronidazole 500 mg tablet 500 mg PO Q8H 10 days #30 tabs 03/28/22 Allergies Allergy/AdvReac Type Severity Reaction Status Date / Time No Known Allergies Allergy Verified 12/30/19 13:26 PFSH PFS Social History Smoking Status: Never smoker alcohol intake: never substance use type: denies use current occupational status: other Travel in the last 8 weeks: None household members: family housing: house ROS Obtained: Yes Systems reviewed as appropriate & no additional complaints except as documented Constitutional Constitutional: Denies fever(s), Denies headache(s) and Denies weakness ENT Ears, Nose, Mouth, and Throat: Denies headache(s), Denies nasal discharge and Denies sore
--- NOTE | 2022-03-28 08:43 | PC.NURSE ---
pt states some relief of pain with meds given
--- NOTE | 2022-03-28 08:44 | PC.NURSE ---
pt updated on plan of care
[2022-03-28 09:40] VITALS: BP 139/78; PULSE 87; RESP 16; TEMP 36.6; O2SAT 98
== END 2022-03-28 09:41 | disposition home or self-care (01) ==
PROVIDERS: Emergency Medicine; Emergency Provider Emergency Medicine; PCP Internal Medicine Adolescent Medicine
DX: K57.32 Diverticulitis of large intestine without perforation or abscess without bleeding (principal); Z79.899 Other long term (current) drug therapy
CPT/HCPCS: 74177; 80053; 81001; 83690; 85025; 96365; 96367; 96375; 99284; J1956; Q9967

== ENCOUNTER 2022-04-27 08:40 | Emergency (ER) | payer BC, OTHER, SELFPAY ==
[2022-04-27 08:50] VITALS: BP 148/95; PULSE 75; RESP 20; TEMP 36.8; O2SAT 98; BMI 35.3
--- NOTE | 2022-04-27 09:06 | EXP.UTC ---
Discharge Plan Disposition Patient Disposition: Home, Self-Care Condition: Good Prescriptions Prescriptions: No Action esomeprazole magnesium [Nexium] 20 mg Capsule,Delayed Release(Dr/Ec) 20 mg PO DAILY Referrals Follow up/Referrals: Vicente Rico MD [Primary Care Provider] - See instructions Activity Restrictions/Add. Instructions Additional Instructions/Restrictions: Suture instructions: ?You have required stitches today. Please read the following instructions so you know how to care for them: ?1. Keep wound area dry for the first 24 hours. 2?? May clean gently with mild soap and water, after 48 hours to prevent crusting over suture knots. 3. You may shower if your provider gives permission but do not take a bath until the skin is healed.. 4. Never leave a wet dressing or Band-Aid on your stitches as this allows bacteria to reach the area and may cause infection. Band-aids can cause the wound to sweat and not recommended to wear for long periods of time Watch for signs of infection: ? Increasing redness, tenderness or warmth around the suture site ? Unusual swelling around the site ? Appearance of pus around each suture or any red streaks ? Fever If you develop any of the above signs or symptoms of infection, Follow up with Family Physician immediately 5. Suture removal in _7-10___days 6. Return to [facility] or follow up with family doctor for removal. This can be done by any medical provider dur?ing regular hours on Sunday through Sunday, by appointment. Clinical Impressions Clinical Impression: Laceration Instructions Patient Instructions: DI for Laceration Repair, DI for Laceration Repair -- Simple Discharge ED Provider: Triny Lui [facility] [place] HPI General Stated complaint: AO 04/27@work@0820 lac on Lt hand Mode of Arrival: Ambulatory Source of Information: Patient Limitations: No Limitations Time Seen by Provider: 04/27/22 09:06 Description of Symptoms (Recalled from Triage Doc. by RN): PATIENT C/O LACERATION TO LEFT HAND AFTER CUTTING IT ON A PIECE OF METAL TODAY. PATIENT DOES NOT KNOW WHEN LAST TDAP WAS HEENT Symptoms (Recalled from RN notes): No Resp Symptoms (Recalled from RN notes): No Skin Symptoms (Recalled from RN notes): Yes MS Symptoms (Recalled from RN notes): No Functional Status (Recalled from RN notes): WNL History of Present Illness Provider Complaint: Patient states that he was working and a piece of metal broke and cut him on the palm of his left hand States that work sent him up to get it looked at and fixed States that he is unsure when his last tetanus shot was so he needs one today Related Data Home Medications Medication Instructions Recorded Confirmed esomeprazole magnesium 20 mg 20 mg PO DAILY GERD 04/27/22 04/27/22 capsule,delayed release (Nexium) Allergies Allergy/AdvReac Type Severity Reaction Status Date / Time No Known Allergies Allergy Verified 12/30/19 13:26 Worker's Comp Is this a Worker's Comp case?: No [facility] Medical History (Updated 04/27/22 @ 09:10 by Triny Lui APRN) Hypertension Surgical History (Updated 04/27/22 @ 09:01 by Carley Alarcon RN) History of appendectomy History of cholecystectomy Social History (Updated 04/27/22 @ 09:02 by Carley Alarcon RN) Smoking Status: Never smoker alcohol intake: never substance use type: denies use current occupational status: other Travel in the last 8 weeks: None household members: family housing: house ROS Obtained: Yes All systems reviewed & no additional complaints except as documented and Yes Systems reviewed as appropriate & no additional complaints except as documented Constitutional Constitutional: Reports system reviewed and no additional complaints, except as documented and Reports as per HPI ENT Ears, Nose, Mouth, and Throat: Reports system reviewed and no additional complaints, except as documented and Reports as per HPI Cardiovascular Cardiovascular: Report
[2022-04-27 09:21] VITALS: BP 148/95; PULSE 75; RESP 20; TEMP 36.8; O2SAT 98
== END 2022-04-27 10:19 | disposition home or self-care (01) ==
PROVIDERS: Emergency Provider Nurse Practitioner; PCP Internal Medicine Adolescent Medicine
DX: S61.412A Laceration without foreign body of left hand, initial encounter (principal); W26.8XXA Contact with other sharp object(s), not elsewhere classified, initial encounter; Z23 Encounter for immunization
CPT/HCPCS: 12001; 90471; 90715; 99213; G0463

== ENCOUNTER 2022-07-04 21:17 | Emergency (ER) | payer BC, OTHER, SELFPAY ==
[2022-07-04 21:27] LABS: Microscopic, Urine URINE MICROSCOPIC (MICROSCOPIC)
[2022-07-04 21:29] VITALS: BP 149/89; PULSE 97; RESP 18; TEMP 36.8; O2SAT 97; BMI 34.0
[2022-07-04 21:30] LABS: Appearance,Urine CLEAR (Clear); Bilirubin,Urine Negative (Negative); Blood, Urine Negative (Negative); Color,Urine YELLOW (Yellow); Glucose,Urine (UA) Negative (Negative); Ketones,Urine Negative (Negative); Leukocyte Esterase,Urine Negative (Negative); Nitrate,Urine Negative (Negative); PH,Urine 6.5 (5.0-8.5); Protein,Urine Negative (Negative); Urobilinogen,Urine 0.2 EU/dl (0.2)
--- NOTE | 2022-07-04 21:35 | CT_ITS ---
PROCEDURE INFORMATION: Exam: CT Abdomen And Pelvis With Contrast Exam date and time: 07/04/2022 9:46 PM Age: 36 years old Clinical indication: Abdominal pain; Generalized TECHNIQUE: Imaging protocol: Computed tomography of the abdomen and pelvis with contrast. Radiation optimization: All CT scans at this facility use at least one of these dose optimization techniques: automated exposure control; mA and/or kV adjustment per patient size (includes targeted exams where dose is matched to clinical indication); or iterative reconstruction. Contrast material: ISOVUE; Contrast volume: 75 ml; Contrast route: IV; COMPARISON: CT ABDOMEN PELVIS W CON 03/28/2022 7:20 AM FINDINGS: Liver: Normal. No mass. Gallbladder and bile ducts: The gallbladder is surgically absent. Pancreas: Normal. No ductal dilation. Spleen: Normal. No splenomegaly. Adrenal glands: Normal. No mass. Kidneys and ureters: Normal. No hydronephrosis. Stomach and bowel: There is short-segment wall thickening with surrounding inflammation in the distal descending colon. Underlying diverticulosis is noted. No evidence of bowel obstruction. Appendix: No evidence of appendicitis. Intraperitoneal space: Unremarkable. No free air. No significant fluid collection. Vasculature: Unremarkable. No abdominal aortic aneurysm. Lymph nodes: Unremarkable. No enlarged lymph nodes. Urinary bladder: Unremarkable as visualized. Reproductive: Unremarkable as visualized. Bones/joints: Unremarkable. No acute fracture. Soft tissues: Unremarkable. IMPRESSION: Findings suggesting uncomplicated diverticulitis of the distal descending colon
--- NOTE | 2022-07-04 21:50 | PC.NURSE ---
Pt back to room from [facility]
[2022-07-04 21:54] LABS: Squamous Epithelial Cell,Urine Occasional #/hpf (0-5)
--- NOTE | 2022-07-04 21:55 | HMH.EDABDPAI ---
Discharge Plan Disposition Patient Disposition: Home, Self-Care Prescriptions Prescriptions: New metronidazole 500 mg Tablet 500 mg PO TID Qty: 30 0RF levofloxacin 500 mg tablet 500 mg PO DAILY Qty: 10 0RF No Action amlodipine 5 mg tablet 5 mg PO DAILY esomeprazole magnesium [Nexium] 20 mg Capsule,Delayed Release(Dr/Ec) 20 mg PO DAILY peg 3350-electrolytes [Golytely] 236-22.74-6.74 -5.86 gram recon soln 240 ml PO Q10M Rx Instructions: until fecal effluent is clear Referrals Follow up/Referrals: Vicente Rico MD [Primary Care Provider] - See instructions Kiet Ball MD [Staff Physician] - See instructions Clinical Impressions Clinical Impression: Diverticulitis large intestine Instructions Patient Instructions: DI for Diverticulitis Discharge ED Provider: Jarvis Al Abdominal Pain HPI General Chief Complaint: Abdominal Pain Stated Complaint: ABD PAIN Time Seen by Provider: 07/04/22 21:56 Mode of Arrival: Ambulatory Source of Information: Patient, Spouse and Medical Record Limitations: No Limitations Description of Symptoms (Recalled from ER Triage Doc. by RN): Pt was dx with diverticulitis in april. states at that time his pain was in his left lower quadrant. States he took some antibiotics and the pain cleared up. Does have a colonoscopy scheduled on 08/04/2022 with . States that yesterday he began having left lower quadrant pain again. Denies injury. Describes pain as similar in nature to his last er visit with diverticulitis. States that the pain was intermittent but has been consistent since 1500. States the pain is severe 8/10 and sharp in nature. History of Present Illness HPI narrative: hx of diverticulitis and has pain in llq and has seen surg and has pending appt for colonoscopy - has pain since yesterday w/o blood in stool and no vomiting complaint: abdominal pain Onset (ago): day(s) Consistency: intermittent Location: LLQ Severity: moderate Quality: sharp Radiation: LLQ Associated symptoms: denies other symptoms Related Data Home Medications Medication Instructions Recorded Confirmed esomeprazole magnesium 20 mg 20 mg PO DAILY GERD 04/27/22 06/14/22 capsule,delayed release (Nexium) amlodipine 5 mg tablet 5 mg PO DAILY bp 05/04/22 06/14/22 peg 3350-electrolytes 236 240 ml PO Q10M bowel prep 06/14/22 06/14/22 gram-22.74 gram-6.74 gram-5.86 gram solution (Golytely) Previous Rx's Medication Instructions Recorded levofloxacin 500 mg tablet 500 mg PO DAILY #10 tabs 07/05/22 metronidazole 500 mg tablet 500 mg PO TID #30 tabs 07/05/22 Allergies Allergy/AdvReac Type Severity Reaction Status Date / Time No Known Allergies Allergy Verified 05/04/22 09:25 [facility] Disclaimer: The information contained in this section may have been updated after the patient was seen, as this information can be updated by other users. Medical History (Updated 07/05/22 @ 00:32 by Jarvis Al MD) Allergies History of COVID-19 History of gastroesophageal reflux (GERD) Hypertension Surgical History History of appendectomy History of back surgery History of cholecystectomy Family History No significant family history Social History (Updated 06/14/22 @ 12:36 by Bisi Luna RN) Smoking Status: Current every day smoker tobacco type: smokeless tobacco years smoked: 15 smoking status stop date: 2018 alcohol intake: current counseling provided: other substance use type: denies use current occupational status: employed Travel in the last 8 weeks: None household members: family housing: house ROS Obtained: Yes All systems reviewed & no additional complaints except as documented Physical Exam General General appearance: alert Head Head exam: normocephalic Eye Eye exam: Presen
[2022-07-04 21:57] LABS: Basophils # 0.2 K/mm3 (0-0.2); Basophils % 1.2 % (0.1-2.0); Eosinophils # 0.3 K/mm3 (0.0-0.4); Eosinophils % 2.3 % (0.1-12.0); Hemoglobin 15.1 g/dL (14.1-18.0); Lymphocytes # 3.4 K/mm3 (0.7-4.5); Lymphocytes % 24.5 % (10-50); Mean Corpuscular HGB Conc 32.8 g/dL (31.8-35.4); Mean Corpuscular Hemoglobin 29.5 pg (27.0-31.2); Mean Platelet Volume 8.3 fl (7.4-10.4); Monocytes # 0.7 K/mm3 (0.1-1.0); Monocytes % 4.7 % (1.7-9.3); Neutrophils # 9.4 K/mm3 (1.8-7.8); Neutrophils % 67.3 % (37.0-80.0); Platelet Count 321 K/mm3 (142-424); Red Blood Count 5.11 M/mm3 (4.60-6.20); Red Cell Distribution Width 13.3 % (11.5-17.5)
[2022-07-04 21:58] LABS: Alanine Aminotransferase 57 U/L (12-78); Albumin Level 4.5 g/dl (3.5-5.0); Albumin/Globulin Ratio 1.4 (1.1-1.8); Alkaline Phosphatase 89 U/L (38-126); Amylase 76 U/L (30-110); Anion Gap 13.6 mEq/L (5-15); Aspartate Amino Transferase 38 U/L (17-59); Bilirubin,Total 0.6 mg/dl (0.2-1.3); Blood Urea Nitrogen 10 mg/dl (9-20); Calcium 8.7 mg/dl (8.4-10.2); Carbon Dioxide 25 mmol/L (22.0-30.0); Chloride 102 mmol/L (98-107); Creatinine Clearance Estimated 208 mL/min (50-200); Estimated Glomerular Filt Rate 97 ml/min (>60); GFR (African American) 117 ML/MIN (>60); Globulin 3.2 g/dL (1.3-3.2); Glucose 116 mg/dl (74-100); Lipase 100 U/L (23-300); Potassium 3.6 mmoL/L (3.5-5.1); Sodium 137 mmol/L (136-145); Total Protein,Serum 7.7 g/dl (6.3-8.2)
[2022-07-04 22:03] LABS: C-Reactive Protein 44.7 mg/L (0-4)
[2022-07-04 22:31] VITALS: BP 93/48; PULSE 85; RESP 18; O2SAT 96
[2022-07-04 22:53] LABS: Erythrocyte Sedimentation Rate 25 mm/hr (0-15)
[2022-07-04 23:01] VITALS: BP 124/77; PULSE 80; RESP 16; O2SAT 95
[2022-07-04 23:30] VITALS: BP 111/71; PULSE 83; RESP 18; O2SAT 99
[2022-07-05 00:35] VITALS: BP 110/65; PULSE 82; RESP 18; TEMP 36.6; O2SAT 99
== END 2022-07-05 01:05 | disposition home or self-care (01) ==
PROVIDERS: Emergency Provider Emergency Medicine; PCP Internal Medicine Adolescent Medicine
DX: K57.32 Diverticulitis of large intestine without perforation or abscess without bleeding (principal); I10 Essential (primary) hypertension; K21.9 Gastro-esophageal reflux disease without esophagitis; Z86.16 Personal history of COVID-19; Z87.19 Personal history of other diseases of the digestive system; F17.210 Nicotine dependence, cigarettes, uncomplicated
CPT/HCPCS: 74177; 80053; 81001; 82150; 83690; 85025; 85651; 86140; 96361; 96374; 96375; 99285; J0131; Q9967

== ENCOUNTER 2022-08-04 11:03 | Day surgery (SDC) | payer BC, OTHER, SELFPAY ==
[2022-06-14 12:40] VITALS: BMI 34.7
[2022-08-04 11:15] VITALS: BP 131/84; PULSE 84; RESP 18; TEMP 36.5; O2SAT 96
[2022-08-04 12:21] VITALS: O2SAT 96
--- NOTE | 2022-08-04 12:28 | EXP.ANES.CKL ---
[facility] Disclaimer: The information contained in this section may have been updated after the patient was seen, as this information can be updated by other users. Medical History Allergies History of COVID-19 History of gastroesophageal reflux (GERD) Hypertension Surgical History History of appendectomy History of back surgery History of cholecystectomy Family History Other No significant family history Social History Smoking Status: Current every day smoker tobacco type: smokeless tobacco years smoked: 15 smoking status stop date: 2018 alcohol intake: current counseling provided: other substance use type: denies use current occupational status: other Travel in the last 8 weeks: None household members: family housing: house [facility] Anesthesia Checklist Patient Identification Patient Identification: Arm Band and Verbal (Name & ) Structural Data Admitted From: Home Planned Operative Procedure/s: Colonoscopy Consent for Planned Operative Procedure(s) Verified: Yes NPO Status Verified Time NPO: 00:00 Airway Assessment C-Spine Mobility Assessed: Yes TMJ Mobility Assessed: Yes Dentition: Good Dentition Neurological Assessment Level of Consciousness: Awake Hx Seizures: No Numbness or tingling in extremities: No Anesthesia Plan Anesthesia Risk discussed: Yes Anesthesia Plan: Verified ASA Class: II Anesthesia Type: MAC
--- NOTE | 2022-08-04 12:52 | P.PCN_ITS ---
Procedure: Date: 08/04/22 Patient Date of :: 1985 Procedure Performed:: Colonoscopy with biopsy Indications:: Patient is a 36-year-old male who had been referred by Dr. Vicente Rico for possible colonoscopy due to history of apparent diverticulitis. He did have a history of diverticulitis diagnosed several years ago characterized by lower abdominal pain. The exact details are unknown. He had never undergone colonoscopy. He had been seen in the emergency department on 03/28/2022 with cramping lower abdominal pain and states that he had passed a significant amount of blood in his bowel movements. He had a CT scan done at that time which revealed acute uncomplicated proximal sigmoid diverticulitis . He was managed as an outpatient with oral antibiotics consisting of ciprofloxacin and metr onidazole. I had seen him on 05/04/2022. Arrangements were made for colonoscopy. He was scheduled for colonoscopy for 08/04/2022. Interestingly the patient had presented to the emergency department on 07/04/2022 with recurrent symptoms. He underwent a CT scan which revealed findings suggesting uncomplicated diverticulitis of the distal descending colon. I was unaware of this. Performing Provider:: Kiet Ball MD Referring Provider:: Vicente Rico MD Sedation:: MAC sedation Procedure:: Patient history was obtained and appropriate physical examination was performed. Patient's medications and allergies were reviewed. Informed consent was obtained after explaining the benefits, alternatives, and risks of the procedure including, but not limited to, bleeding, perforation, missed lesions, and adverse reaction to anesthesia medications. Patient was transported to endoscopy procedure room. Patient was connected to monitoring devices. Throughout the procedure the patient's blood pressure, pulse, and oxygen saturations were monitored continuously. Patient identification and planned procedure were verified by the staff. Patient was positioned in lateral decubitus position. Digital anorectal exam was performed. Variable stiffness Olympus colonoscope was inserted and advanced under direct visualization to the cecum. Adequacy of the colonic preparation was noted. The colonoscope was then slowly withdrawn while carefully examining the color, texture, anatomy, and integrity of the mucosoa circumferentially. Within the rectum retroflexion was performed. Colonoscope w as then withdrawn. Findings:: He had a rather poor colonic preparation. There was undigested food and vegetable matter within the colon. This was most noted in the right colon. Due to the undigested food/vegetable matter this was unable to be cleared with irrigation and therefore visualization was somewhat suboptimal. He was noted to have pandiverticulosis with most pronounced diverticuli in the left colon between 30 and 60 cm. There appeared to be some possible inflammation at approximately 50 cm which was biopsied. There was no obvious large polyp or obstructing mass. Retroflexion revealed nonpathologic internal hemorrhoids. Impression: Poor prep with undigested food/vegetable matter Pandiverticulosis Probable resolving inflammation at approximately 50 cm from anal verge Recommendations:: Plan to follow-up clinically as well as histopathologically regarding biopsy with the patient. If he continues to have recurrent problems with a the candidate for possible resection although this may be best served by colorectal surgery as a laparoscopic procedure. May need repeat colonoscopy due to suboptimal prep. Complications:: None immediate Estimated blood obtained (mL): 1
[2022-08-04 12:54] VITALS: BP 121/90; PULSE 96; RESP 15; TEMP 36.6; O2SAT 93
[2022-08-04 13:04] VITALS: BP 119/73; PULSE 82; RESP 15; O2SAT 93
--- NOTE | 2022-08-04 13:10 | SUR.PHASEII ---
1310 nasal trumpet and oral airway removed w/o issue.
[2022-08-04 13:14] VITALS: BP 108/74; PULSE 78; RESP 16; O2SAT 100
[2022-08-04 13:30] VITALS: BP 108/73; PULSE 92; RESP 16; O2SAT 96
== END 2022-08-04 13:35 | disposition home or self-care (01) ==
PROVIDERS: PCP Internal Medicine Adolescent Medicine; Visit Provider Surgery
PROC: 0DJD8ZZ Inspection of Lower Intestinal Tract, Via Natural or Artificial Opening Endoscopic (ICD-10-PCS; CPT 45380; principal; 2022-08-04 12:30)
DX: K52.9 Noninfective gastroenteritis and colitis, unspecified (principal); K57.32 Diverticulitis of large intestine without perforation or abscess without bleeding; Z91.199 Patient's noncompliance with other medical treatment and regimen due to unspecified reason; Z72.0 Tobacco use; Z79.899 Other long term (current) drug therapy
CPT/HCPCS: 45380; J2704

== ENCOUNTER → 2022-08-29 10:44 | Outpatient (CLI) | payer BC, OTHER, SELFPAY ==
--- NOTE | 2022-08-29 12:12 | CT_ITS ---
FINAL REPORT TECHNIQUE: Postcontrast axial images through the abdomen and pelvis were performed. This study was performed with techniques to keep radiation doses as low as reasonably achievable, (ALARA). Individualized dose reduction techniques using automated exposure control or adjustment of mA and/or kV according to the patient's size were employed. CLINICAL HISTORY: abdominal pain COMPARISON: July 04, 2022 FINDINGS: Abdomen: There is mild bibasilar atelectasis or scarring. The liver is fatty infiltrated. There is evidence of cholecystectomy. The spleen is unremarkable. The adrenals are normal. The pancreas is unremarkable. The kidneys enhance appropriately. The aorta is normal in caliber. No free fluid or adenopathy is identified. No findings for mechanical bowel obstruction are identified. There are multiple colonic diverticulum. There is mild stranding anterior to the distal descending colon that may represent mild acute diverticulitis or epiploic appendagitis. Pelvis: The appendix is not identified. There is urinary bladder wall thickening which is likely inflammatory. No free fluid, free air, abscess or adenopathy is identified. IMPRESSION: Mild stranding anterior to the distal descending colon may represent mild acute diverticulitis or epiploic appendagitis. Reviewed, Interpreted and Dictated by Kiet Saravia III, MD Transcribed by Sha Zurita Authenticated and [facility]
[2022-08-29 12:13] LABS: Basophils # 0.1 K/mm3 (0-0.2); Basophils % 1.3 % (0.1-2.0); Eosinophils # 0.2 K/mm3 (0.0-0.4); Eosinophils % 2.4 % (0.1-12.0); Hematocrit 45.8 % (42.0-52.0); Hemoglobin 15.5 g/dL (14.1-18.0); Lymphocytes # 2.4 K/mm3 (0.7-4.5); Lymphocytes % 27.5 % (10-50); Mean Corpuscular HGB Conc 33.8 g/dL (31.8-35.4); Mean Corpuscular Hemoglobin 29.3 pg (27.0-31.2); Mean Corpuscular Volume 86.5 fl (80-94); Mean Platelet Volume 8.3 fl (7.4-10.4); Monocytes # 0.5 K/mm3 (0.1-1.0); Monocytes % 5.1 % (1.7-9.3); Neutrophils # 5.6 K/mm3 (1.8-7.8); Neutrophils % 63.8 % (37.0-80.0); Platelet Count 281 K/mm3 (142-424); Red Cell Distribution Width 13.4 % (11.5-17.5); White Blood Count 8.8 K/mm3 (4.8-10.8)
[2022-08-29 12:51] LABS: Blood Urea Nitrogen 10 mg/dl (9-20); Estimated Glomerular Filt Rate 111 ml/min (>60); GFR (African American) 134 ML/MIN (>60)
== END ==
PROVIDERS: PCP Internal Medicine Adolescent Medicine; Visit Provider Surgery
DX: K57.92 Diverticulitis of intestine, part unspecified, without perforation or abscess without bleeding (principal)
CPT/HCPCS: 36415; 74177; 82565; 84520; 85025; Q9967

== ENCOUNTER 2023-01-20 05:42 | Emergency (ER) | payer BC, OTHER, SELFPAY ==
[2023-01-20 05:43] VITALS: BP 143/104; PULSE 70; RESP 20; TEMP 36.4; O2SAT 100; BMI 34.0
[2023-01-20 06:02] VITALS: BP 142/98; PULSE 74; RESP 18; TEMP 36.4
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
== END 2023-01-20 06:10 | disposition home or self-care (01) ==
PROVIDERS: Emergency Provider Emergency Medicine; PCP Internal Medicine Adolescent Medicine
DX: H10.33 Unspecified acute conjunctivitis, bilateral (principal); H16.133 Photokeratitis, bilateral; W89.0XXA Exposure to welding light (arc), initial encounter; I10 Essential (primary) hypertension
CPT/HCPCS: 99284

== ENCOUNTER 2023-06-22 04:44 | Emergency (ER) | payer BC, OTHER, SELFPAY ==
[2023-06-22] VITALS (13 sets, daily range): BP systolic 125–152; BP diastolic 85–101; PULSE 61–85; RESP 16; TEMP 36.5–36.6; O2SAT 96–99; BMI 34.0
--- NOTE | 2023-06-22 04:56 | CT_ITS ---
PROCEDURE INFORMATION: Exam: CT Abdomen And Pelvis With Contrast Exam date and time: 06/22/2023 5:10 AM Age: 37 years old Clinical indication: Abdominal pain; Localized; Left lower quadrant (llq); Additional info: Llq pain, h/o diverticulitis TECHNIQUE: Imaging protocol: Computed tomography of the abdomen and pelvis with contrast. Radiation optimization: All CT scans at this facility use at least one of these dose optimization techniques: automated exposure control; mA and/or kV adjustment per patient size (includes targeted exams where dose is matched to clinical indication); or iterative reconstruction. Contrast material: ISOVUE; Contrast volume: 75 ml; Contrast route: IV; REPORTING DATA: Count of CT and Cardiac NM exams in prior 12 months: This patient has received 2 known CTs and 0 known cardiac nuclear medicine studies in the 12 months prior to the current study. COMPARISON: CT ABDOMEN PELVIS W CON 08/29/2022 1:11 PM FINDINGS: Liver: The liver is low in density. Gallbladder and bile ducts: Prior cholecystectomy. Pancreas: Normal. No ductal dilation. Spleen: Normal. No splenomegaly. Adrenal glands: Normal. No mass. Kidneys and ureters: Normal. No hydronephrosis. Stomach and bowel: Concentric thickening with adjacent inflammation is seen in the sigmoid colon in the region of extensive diverticuli consistent with acute diverticulitis. No perforation or obstruction is noted. Appendix: No evidence of appendicitis. Intraperitoneal space: Unremarkable. No free air. No significant fluid collection. Vasculature: Unremarkable. No abdominal aortic aneurysm. Lymph nodes: Unremarkable. No enlarged lymph nodes. Urinary bladder: Unremarkable as visualized. Reproductive: Unremarkable as visualized. Bones/joints: Unremarkable. No acute fracture. Soft tissues: Unremarkable. IMPRESSION: Concentric thickening with adjacent inflammation sigmoid colon consistent with moderately severe acute diverticulitis. No perforation or obstruction is noted.
--- NOTE | 2023-06-22 04:57 | ED_ITS ---
Discharge Plan Disposition Patient Disposition: Home, Self-Care Condition: Good Prescriptions Prescriptions: New amoxicillin-pot clavulanate 875-125 mg tablet 1 tab PO Q8H 5 Days Qty: 15 0RF ondansetron 4 mg tablet,disintegrating 4 mg PO Q8H PRN (Reason: nausea and vomiting) 4 Days Qty: 12 0RF naproxen 500 mg tablet 500 mg PO BID PRN (Reason: pain) Qty: 20 0RF hydrocodone-acetaminophen 5-325 mg tablet 1 tab PO Q8H PRN (Reason: pain) Qty: 10 0RF No Action esomeprazole magnesium [Nexium] 20 mg Capsule,Delayed Release(Dr/Ec) 20 mg PO DAILY Referrals Follow up/Referrals: Vicente Rico MD [Primary Care Provider] - See instructions Activity Restrictions/Add. Instructions Additional Instructions/Restrictions: You were evaluated in the emergency department today. 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 Follow-up with your primary care provider over the next 3 days for reassessment. I recommend liquid diet and bowel rest (low fiber foods) with slow advancement of your diet as tolerated. Return to the emergency department for any new or worsening symptoms. Clinical Impressions Clinical Impression: Diverticulitis Stand Alone Forms Stand Alone Forms: Work/School Release Instructions Patient Instructions: DI for Diverticulitis, DI for Acute Abdominal Pain Discharge ED Provider: Edward Rodriguez Adult HPI <Roxy Floyd, - Last Filed: 06/22/23 06:51> General Chief complaint: Abdominal Pain Stated complaint: lower abd pain Time Seen by Provider: 06/22/23 04:55 Mode of Arrival: Ambulatory Source of Information: Patient Limitations: No Limitations Description of Symptoms (Recalled from ER Triage Doc. by RN): pt c/o abd pain since yesterday morning. pt denies n/v/d History of Present Illness HPI narrative: This patient is a 37-year-old male with history of diverticulitis, prior appendectomy, and prior cholecystectomy presenting to the emergency department with concern for abdominal pain since yesterday morning. Patient states that it feels like prior diverticulitis flare. He states the pain is mostly in his left lower quadrant/suprapubic region. He also notes that he is having loose stools with bright red blood. No fevers, chills, nausea, vomiting, or other concerns noted. Related Data Home Medications Medication Instructions Recorded Confirmed esomeprazole magnesium 20 mg 20 mg PO DAILY GERD 04/27/22 06/22/23 capsule,delayed release (Nexium) Previous Rx's Medication Instructions Recorded amoxicillin 875 mg-potassium 1 tab PO Q8H 5 days #15 tabs 06/22/23 clavulanate 125 mg tablet hydrocodone 5 mg-acetaminophen 325 1 tab PO Q8H PRN pain #10 tabs 06/22/23 mg tablet naproxen 500 mg tablet 500 mg PO BID PRN pain #20 tabs 06/22/23 ondansetron 4 mg disintegrating 4 mg PO Q8H PRN nausea and 06/22/23 tablet vomiting 4 days #12 tabs Allergies Allergy/AdvReac Type Severity Reaction Status Date / Time No Known Allergies Allergy Verified 09/05/22 10:58 PFSH <Roxy Floyd DO - Last Filed: 06/22/23 06:51> PFS Disclaimer: The information contained in this section may have been updated after the patient was seen, as this information can be updated by other users. Medical History Allergies History of COVID-19 History of gastroesophageal reflux (GERD) Hypertension Surgical History History of appendectomy History of back surgery History of cholecystectomy History of colonoscopy Family History Other No significant family history Social History Smoking Status: Never smoker years smoked: 15 smoking status stop date: 2018 alcohol intake: current counseling provided: other substance use type: denies use current occupational status: employed Travel in the last 8 weeks: None household members: family housing: house <Roxy Floyd DO - Last Filed: 06/22/23 06:51> ROS Obtained: Yes All systems reviewed & no additional complaints except as documented Physical Exam <Roxy Floyd DO - Last Filed: 06/22/23 06:51> General General appearance: alert and in no apparent distress Head Head exam: atraumatic and normocephalic Eye Eye exam: Present normal appearance, PERRL and EOMI ENT ENT exam: Present normal exam, normal oropharynx, mucous membranes moist and normal external ear exam Neck Neck exam: Present normal inspection, full ROM and trachea midline; Absent tenderness Chest Chest inspection: Present normal inspection and symmetric chest wall rise; Absent tenderness Respiratory Respiratory exam: Present normal lung sounds bilaterally; Absent respiratory distress, wheezes, stridor or accessory muscle use Cardiovascular Cardiovascular exam: Present regular rate and normal rhythm Abdominal Exam Abdominal exam: Present soft, tenderness (Suprapubic, left lower quadrant) and normal bowel sounds; Absent distention, guarding, rebound or rigidity Extremities Exam Extremities exam: Present normal inspection, full ROM and normal capillary refill; Absent tenderness or edema Back Exam Back exam: Present normal inspection and full ROM; Absent tenderness Neurological Exam Neurological exam: Present alert, oriented X3, CN II-XII intact and normal gait; Absent motor sensory deficit Psychiatric Psychiatric exam: Present normal affect and normal mood Skin Skin exam: Present warm and dry Medical Decision Making <Roxy Floyd, DO - Last Filed: 06/22/23 06:51> Medical Records Medical records reviewed: Yes I reviewed the patient's medical records. Dl Inquiry Pt receiving controlled substance: No Vital Signs: 06/22/23 04:45 06/22/23 04:50 06/22/23 05:20 Temperature 97.8 F Temperature Source Oral Pulse Rate 83 78 Pulse Rate [Right] 85 Respiratory Rate 16 Blood Pressure 150/98 H 145/88 H Blood Pressure [Right Arm] 152/100 H Blood Pressure Mean Blood Pressure Mean [Right Arm] 117 02 Sat by Pulse Oximetry 98 97 98 Oxygen Delivery Method 06/22/23 05:25 06/22/23 05:30 06/22/23 05:40 Temperature Temperature Source Pulse Rate 72 72 74 Pulse Rate [Right] Respiratory Rate Blood Pressure 130/85 134/88 147/90 H Blood Pressure [Right Arm] Blood Pressure Mean Blood Pressure Mean [Right Arm] 02 Sat by Pulse Oximetry 97 97 98 Oxygen Delivery Method 06/22/23 06:00 06/22/23 06:15 06/22/23 06:30 Temperature Temperature Source Pulse Rate 68 70 63 Pulse Rate [Right] Respiratory Rate Blood Pressure 131/97 H 135/91 H 125/86 Blood Pressure [Right Arm] Blood Pressure Mean Blood Pressure Mean [Right Arm] 02 Sat by Pulse Oximetry 98 97 97 Oxygen Delivery Method 06/22/23 06:45 06/22/23 07:00 06/22/23 07:15 Temperature Temperature Source Pulse Rate 61 72 65 Pulse Rate [Right] Respiratory Rate Blood Pressure 137/87 125/96 H 143/101 H Blood Pressure [Right Arm] Blood Pressure Mean 102 114 Blood Pressure Mean [Right Arm] 02 Sat by Pulse Oximetry 96 97 96 Oxygen Delivery Method Room Air Room Air 06/22/23 07:39 Temperature 97.7 F Temperature Source Pulse Rate 72 Pulse Rate [Right] Respiratory Rate 16 Blood Pressure 139/89 Blood Pressure [Right Arm] Blood Pressure Mean Blood Pressure Mean [Right Arm] 02 Sat by Pulse Oximetry Oxygen Delivery Method Room Air Lab Data Lab results reviewed: Yes I reviewed the patient's lab results. Lab Results 06/22/23 04:52: WBC 10.3, RBC 4.99, Hgb 15.5, Hct 44.0, MCV 88.3, MCH 31.0, MCHC 35.1, RDW 13.1, Plt Count 247, MPV 8.4, Neut % (Auto) 66.7, Lymph % (Auto) 25.7, [place] % (Auto) 3.9, Eos % (Auto) 2.9, Baso % (Auto) 0.8, Neut # (Auto) 6.8, Lymph # (Auto) 2.6, [place] # (Auto) 0.4, Eos # (Auto) 0.3, Baso # (Auto) 0.1, Sodium 138, Potassium 3.9, Chloride 104, Carbon Dioxide 23, Anion Gap 14.9, BUN 9, Creatinine 0.90, Estimated Creat Clear 206, Estimated GFR 96, Est GFR ( Amer) 116, Glucose 144 H, Calcium 8.5, Total Bilirubin 0.9, AST 54, ALT 83 H, Alkaline Phosphatase 92, Total Protein 7.2, Albumin 4.1, Globulin 3.1, Albumin/Globulin Ratio 1.3, Lipase 98 06/22/23 05:58: Urine Color Yellow, Urine Appearance Clear, Urine pH 6.5, Ur Specific [place] <= 1.005, Urine Protein Negative, Urine Glucose (UA) Negative, Urine Ketones Negative, Urine Blood Negative, Urine Nitrate Negative, Urine Bilirubin Negative, Urine Urobilinogen 0.2, Ur Leukocyte Esterase Negative, Urine RBC None, Urine WBC Occasional, Ur Squamous Epith Cells 3-5, Urine Ingris teria Trace 06/22/23 04:52 06/22/23 04:52 Orders (Tests/Meds): ED MEDICATIONS Discontinued Medications Generic Name Dose Route Start Last Admin Trade Name Cheo PRN Reason Stop Dose Admin Acetaminophen 1,000 mg 06/22/23 04:55 06/22/23 05:07 Acetaminophen 1,000mg/100ml Vial IV 06/22/23 04:56 1,000 mg ONCE ONE Administration Lactated Ringer's 1,000 mls @ 999 mls/hr 06/22/23 04:55 06/22/23 05:09 Lactated Ringer's 1000 Ml Bag IV 06/22/23 05:55 999 mls/hr .Q1H1M ONE Administration Iopamidol 75 ml 06/22/23 05:17 06/22/23 05:18 Iopamidol-370 (76%);100ml Bottle IV 06/22/23 05:18 75 ml ONCE ONE Administration Ketorolac Tromethamine 15 mg 06/22/23 04:55 06/22/23 05:04 Ketorolac 30mg/Ml Vial IV 06/22/23 04:56 15 mg ONCE ONE Administration Ondansetron HCl 4 mg 06/22/23 04:55 06/22/23 05:04 Ondansetron 4mg/2ml Vial IV 06/22/23 04:56 4 mg ONCE ONE Administration Sodium Chloride 10 ml 06/22/23 05:17 06/22/23 05:18 Sodium Chloride 0.9% 10ml Syr (Rad Only) IV 06/22/23 05:18 10 ml ONCE ONE Administration ORDERS Category Date Time Status CT abdomen pelvis w con Stat Cat Scan 06/22/23 04:56 Completed CMP [Comprehensive Metabolic Panel] Stat Lab 06/22/23 04:52 Completed Complete Blood Count Auto Diff Stat Lab 06/22/23 04:52 Completed Lipase Stat Lab 06/22/23 04:52 Completed Urinalysis and Microscopic Stat Lab 06/22/23 05:58 Completed Medical Decision Narrative: In summary, this patient is a 37-year-old male presenting to the Emergency Department for evaluation of suprapubic and left lower quadrant pain as well as diarrhea. Differential diagnoses considered include but are not limited to diverticulitis, colitis, gastroenteritis. Ruling out the most morbid conditions drove assessment. I reviewed patient's past medical records and noted previous evaluations for diverticulitis in the past, including most recent evaluation in August 2022 for this. He was prescribed ciprofloxacin and Levaquin at that time. On exam, the patient is well-appearing with reassuring vital signs. He has left lower quadrant and suprapubic tenderness, but he has no rebound or guarding. Workup included CBC, CMP, lipase, urinalysis, and CT abdomen pelvis with IV contrast. He was given a bolus of IV fluids as well as IV acetaminophen, Toradol, and Zofran for symptomatic improvement. Labs were obtained that did not demonstrate any acutely concerning abnormalities at this time. CT scan has been performed, per radiology read is pending. I independently interpreted CT scan prior to radiology read and noted concerns for diverticulitis. I had a discussion with the patient regarding the fact that antibiotics may not be necessary in the treatment of uncomplicated div erticulitis, however he has previously been treated with antibiotics as standard. Given that it is a holiday, after discussion, he would like to proceed with antibiotic treatment to be on the safe side. Patient care signed out to the oncoming provider, Dr. Rodriguez, pending CT read. <Edward Rodriguez MD - Last Filed: 06/22/23 08:05> Vital Signs: 06/22/23 04:45 06/22/23 04:50 06/22/23 05:20 Temperature 97.8 F Temperature Source Oral Pulse Rate 83 78 Pulse Rate [Right] 85 Respiratory Rate 16 Blood Pressure 150/98 H 145/88 H Blood Pressure [Right Arm] 152/100 H Blood Pressure Mean Blood Pressure Mean [Right Arm] 117 02 Sat by Pulse Oximetry 98 97 98 Oxygen Delivery Method 06/22/23 05:25 06/22/23 05:30 06/22/23 05:40 Temperature Temperature Source Pulse Rate 72 72 74 Pulse Rate [Right] Respiratory Rate Blood Pressure 130/85 134/88 147/90 H Blood Pressure [Right Arm] Blood Pressure Mean Blood Pressure Mean [Right Arm] 02 Sat by Pulse Oximetry 97 97 98 Oxygen Delivery Method 06/22/23 06:00 06/22/23 06:15 06/22/23 06:30 Temperature Temperature Source Pulse Rate 68 70 63 Pulse Rate [Right] Respiratory Rate Blood Pressure 131/97 H 135/91 H 125/86 Blood Pressure [Right Arm] Blood Pressure Mean Blood Pressure Mean [Right Arm] 02 Sat by Pulse Oximetry 98 97 97 Oxygen Delivery Method 06/22/23 06:45 06/22/23 07:00 06/22/23 07:15 Temperature Temperature Source Pulse Rate 61 72 65 Pulse Rate [Right] Respiratory Rate Blood Pressure 137/87 125/96 H 143/101 H Blood Pressure [Right Arm] Blood Pressure Mean 102 114 Blood Pressure Mean [Right Arm] 02 Sat by Pulse Oximetry 96 97 96 Oxygen Delivery Method Room Air Room Air 06/22/23 07:39 Temperature 97.7 F Temperature Source Pulse Rate 72 Pulse Rate [Right] Respiratory Rate 16 Blood Pressure 139/89 Blood Pressure [Right Arm] Blood Pressure Mean Blood Pressure Mean [Right Arm] 02 Sat by Pulse Oximetry Oxygen Delivery Method Room Air Lab Data Lab Results 06/22/23 04:52: WBC 10.3, RBC 4.99, Hgb 15.5, Hct 44.0, MCV 88.3, MCH 31.0, MCHC 35.1, RDW 13.1, Plt Count 247, MPV 8.4, Neut % (Auto) 66.7, Lymph % (Auto) 25.7, [place] % (Auto) 3.9, Eos % (Auto) 2.9, Baso % (Auto) 0.8, Neut # (Auto) 6.8, Lymph # (Auto) 2.6, [place] # (Auto) 0.4, Eos # (Auto) 0.3, Baso # (Auto) 0.1, Sodium 138, Potassium 3.9, Chloride 104, Carbon Dioxide 23, Anion Gap 14.9, BUN 9, Creatinine 0.90, Estimated Creat Clear 206, Estimated GFR 96, Est GFR ( Amer) 116, Glucose 144 H, Calcium 8.5, Total Bilirubin 0.9, AST 54, ALT 83 H, Alkaline Phosphatase 92, Total Protein 7.2, Albumin 4.1, Globulin 3.1, Albumin/Globulin Ratio 1.3, Lipase 98 06/22/23 05:58: Urine Color Yellow, Urine Appearance Clear, Urine pH 6.5, Ur Specific [place] <= 1.005, Urine Protein Negative, Urine Glucose (UA) Negative, Urine Ketones Negative, Urine Blood Negative, Urine Nitrate Negative, Urine Bilirubin Negative, Urine Urobilinogen 0.2, Ur Leukocyte Esterase Negative, Urin e RBC None, Urine WBC Occasional, Ur Squamous Epith Cells 3-5, Urine Bacteria Trace Orders (Tests/Meds): ED MEDICATIONS Discontinued Medications Generic Name Dose Route Start Last Admin Trade Name Cheo PRN Reason Stop Dose Admin Acetaminophen 1,000 mg 06/22/23 04:55 06/22/23 05:07 Acetaminophen 1,000mg/100ml Vial IV 06/22/23 04:56 1,000 mg ONCE ONE Administration Lactated Ringer's 1,000 mls @ 999 mls/hr 06/22/23 04:55 06/22/23 05:09 Lactated Ringer's 1000 Ml Bag IV 06/22/23 05:55 999 mls/hr .Q1H1M ONE Administration Iopamidol 75 ml 06/22/23 05:17 06/22/23 05:18 Iopamidol-370 (76%);100ml Bottle IV 06/22/23 05:18 75 ml ONCE ONE Administration Ketorolac Tromethamine 15 mg 06/22/23 04:55 06/22/23 05:04 Ketorolac 30mg/Ml Vial IV 06/22/23 04:56 15 mg ONCE ONE Administration Ondansetron HCl 4 mg 06/22/23 04:55 06/22/23 05:04 Ondansetron 4mg/2ml Vial IV 06/22/23 04:56 4 mg ONCE ONE Administration Sodium Chloride 10 ml 06/22/23 05:17 06/22/23 05:18 Sodium Chloride 0.9% 10ml Syr (Rad Only) IV 06/22/23 05:18 10 ml ONCE ONE Administration ORDERS Category Date Time Status CT abdomen pelvis w con Stat Cat Scan 06/22/23 04:56 Completed CMP [Comprehensive Metabolic Panel] Stat Lab 06/22/23 04:52 Completed Complete Blood Count Auto Diff Stat Lab 06/22/23 04:52 Completed Lipase Stat Lab 06/22/23 04:52 Completed Urinalysis and Microscopic Stat Lab 06/22/23 05:58 Completed Medical Decision Narrative: In summary, this patient is a 37-year-old male presenting to the Emergency Department for evaluation of suprapubic and left lower quadrant pain as well as diarrhea. Differential diagnoses considered include but are not limited to diverticulitis, colitis, gastroenteritis. Ruling out the most morbid conditions drove assessment. I reviewed patient's past medical records and noted previous evaluations for diverticulitis in the past, including most recent evaluation in August 2022 for this. He was prescribed ciprofloxacin and Levaquin at that time. On exam, the patient is well-appearing with reassuring vital signs. He has left lower quadrant and suprapubic tenderness, but he has no rebound or guarding. Workup included CBC, CMP, lipase, urinalysis, and CT abdomen pelvis with IV contrast. He was given a bolus of IV fluids as well as IV acetaminophen, Toradol, and Zofran for symptomatic improvement. Labs were obtained that did not demonstrate any acutely concerning abnormalities at this time. CT scan has been performed, per radiology read is pending. I independently interpreted CT scan prior to radiology read and noted concerns for diverticulitis. I had a discussion with the patient regarding the fact that antibiotics may not be necessary in the treatment of uncomplicated divertic ulitis, however he has previously been treated with antibiotics as standard. Given that it is a holiday, after discussion, he would like to proceed with antibiotic treatment to be on the safe side. Patient care signed out to the oncoming provider, Dr. Rodriguez, pending CT read. Edward Rodriguez MD: I assumed care of this patient from the previous emergency medicine physician. CT imaging was consistent with acute diverticulitis. Upon reassessment patient continues to report improvement of symptoms, overall nontoxic clinical picture at this time, after shared decision-making is again agreeable to outpatient management with strict return precautions. Previous emergency medicine physician prescribed antibiotics, analgesia, and patient was discharged from the emergency department. Critical Care <Roxy Floyd, DO - Last Filed: 06/22/23 06:51> Critical Care Time Critical Care Time: No
[2023-06-22 05:02] LABS: Basophils # 0.1 K/mm3 (0-0.2); Basophils % 0.8 % (0.1-2.0); Eosinophils # 0.3 K/mm3 (0.0-0.4); Eosinophils % 2.9 % (0.1-12.0); Hemoglobin 15.5 g/dL (14.1-18.0); Lymphocytes # 2.6 K/mm3 (0.7-4.5); Lymphocytes % 25.7 % (10-50); Mean Corpuscular HGB Conc 35.1 g/dL (31.8-35.4); Mean Corpuscular Volume 88.3 fl (80-94); Mean Platelet Volume 8.4 fl (7.4-10.4); Monocytes # 0.4 K/mm3 (0.1-1.0); Monocytes % 3.9 % (1.7-9.3); Neutrophils # 6.8 K/mm3 (1.8-7.8); Neutrophils % 66.7 % (37.0-80.0); Platelet Count 247 K/mm3 (142-424); Red Blood Count 4.99 M/mm3 (4.60-6.20); Red Cell Distribution Width 13.1 % (11.5-17.5); White Blood Count 10.3 K/mm3 (4.8-10.8)
[2023-06-22 05:03] LABS: Chloride 104 mmol/L (98-107); Potassium 3.9 mmoL/L (3.5-5.1); Sodium 138 mmol/L (136-145)
[2023-06-22] MEDS: KETOROLAC 30MG/ML VIAL 15 MG IV (05:04)
[2023-06-22] MEDS: ONDANSETRON 4MG/2ML VIAL 4 MG IV (05:04)
[2023-06-22 05:05] LABS: Blood Urea Nitrogen 9 mg/dl (9-20); Creatinine Clearance Estimated 206 mL/min (50-200); Estimated Glomerular Filt Rate 96 ml/min (>60); GFR (African American) 116 ML/MIN (>60)
[2023-06-22 05:06] LABS: Alanine Aminotransferase 83 U/L (12-78); Albumin Level 4.1 g/dl (3.5-5.0); Albumin/Globulin Ratio 1.3 (1.1-1.8); Alkaline Phosphatase 92 U/L (38-126); Anion Gap 14.9 mEq/L (5-15); Aspartate Amino Transferase 54 U/L (17-59); Bilirubin,Total 0.9 mg/dl (0.2-1.3); Calcium 8.5 mg/dl (8.4-10.2); Carbon Dioxide 23 mmol/L (22.0-30.0); Globulin 3.1 g/dL (1.3-3.2); Glucose 144 mg/dl (74-100); Lipase 98 U/L (23-300); Total Protein,Serum 7.2 g/dl (6.3-8.2)
[2023-06-22] MEDS: ACETAMINOPHEN 1,000MG/100ML VIAL 1000 MG IV (05:07)
[2023-06-22] MEDS: LACTATED RINGERS 1000ML 1,000 ML 999 ML IV (05:09)
[2023-06-22] MEDS: SODIUM CHLORIDE 0.9% 10ML SYR (RAD ONLY) 10 ML IV (05:18)
[2023-06-22] MEDS: IOPAMIDOL-370 (76%);100ML BOTTLE 75 ML IV (05:18)
[2023-06-22 06:01] LABS: Microscopic, Urine URINE MICROSCOPIC (MICROSCOPIC)
[2023-06-22 06:03] LABS: Appearance,Urine CLEAR (Clear); Bilirubin,Urine Negative (Negative); Blood, Urine Negative (Negative); Color,Urine YELLOW (Yellow); Glucose,Urine (UA) Negative (Negative); Ketones,Urine Negative (Negative); Leukocyte Esterase,Urine Negative (Negative); Nitrate,Urine Negative (Negative); PH,Urine 6.5 (5.0-8.5); Protein,Urine Negative (Negative); Specific Gravity, Urine <= 1.005 (1.005-1.030); Urobilinogen,Urine 0.2 EU/dl (0.2)
[2023-06-22 06:14] LABS: Bacteria,Urine Trace /lpf; WBC,Urine Occasional #/hpf (0-3)
--- NOTE | 2023-06-22 07:28 | PC.NURSE ---
Dr. Rodriguez at for update on POC/results
== END 2023-06-22 07:40 | disposition home or self-care (01) ==
PROVIDERS: Emergency Medicine; Emergency Provider Emergency Medicine; PCP Internal Medicine Adolescent Medicine
DX: K57.32 Diverticulitis of large intestine without perforation or abscess without bleeding (principal); R10.32 Left lower quadrant pain; I10 Essential (primary) hypertension
CPT/HCPCS: 74177; 80053; 81001; 83690; 85025; 96361; 96374; 96375; 99285; J0131; J2405; Q9967

== ENCOUNTER 2023-10-23 07:06 | Emergency (ER) | payer SELFPAY ==
[2023-10-23] VITALS (7 sets, daily range): BP systolic 118–134; BP diastolic 64–99; PULSE 55–91; RESP 17–18; TEMP 36.8; O2SAT 97–99; BMI 33.0
--- NOTE | 2023-10-23 07:18 | CT_ITS ---
FINAL REPORT TECHNIQUE: After the administration of intravenous contrast, axial images were obtained through the abdomen and pelvis by computed tomography. The study was performed with techniques to keep radiation dose as low as reasonably achievable, (ALARA). Individual dose reduction techniques using automated exposure control or adjustment of mA and/or kV according to the patient's size were employed. CLINICAL HISTORY: LLQ abd pain, h/o diverticulitis COMPARISON: 06/22/2023 FINDINGS: Abdomen: No acute density is seen within the lung bases. Solid abdominal organs are unremarkable. Status postcholecystectomy. No bowel obstruction is present. There is no free air. No fluid collection is seen. There is a tiny umbilical hernia containing fat. There is no adenopathy. Pelvis: The appendix is not seen. There is mild sigmoid diverticulosis. There has been resolution of the inflammatory changes since the prior exam. There is no evidence of abscess. There is no free fluid. No pelvic mass is seen. IMPRESSION: Advanced sigmoid diverticulosis with interval resolution of diverticulitis. No acute findings. Reviewed, Interpreted and Dictated by Carol Farfan MD Transcribed by Haleigh Ventura Authenticated and [facility]
--- NOTE | 2023-10-23 07:21 | ED_ITS ---
Discharge Plan Disposition Patient Disposition: Home, Self-Care Condition: Good Prescriptions Prescriptions: New ondansetron 4 mg tablet,disintegrating 4 mg PO Q8H PRN (Reason: nausea and vomiting) 4 Days Qty: 12 0RF No Action amoxicillin-pot clavulanate 875-125 mg tablet 1 tab PO Q8H 5 Days Qty: 15 0RF ondansetron 4 mg tablet,disintegrating 4 mg PO Q8H PRN (Reason: nausea and vomiting) 4 Days Qty: 12 0RF naproxen 500 mg tablet 500 mg PO BID PRN (Reason: pain) Qty: 20 0RF hydrocodone-acetaminophen 5-325 mg tablet 1 tab PO Q8H PRN (Reason: pain) Qty: 10 0RF esomeprazole magnesium [Nexium] 20 mg Capsule,Delayed Release(Dr/Ec) 20 mg PO DAILY Referrals Follow up/Referrals: Rashad Linda APRN [Primary Care Provider] - See instructions Activity Restrictions/Add. Instructions Additional Instructions/Restrictions: You were evaluated in the emergency department today. At this time, your CT scan does not concerning for diverticulitis, but it is possible it could still be early. Your symptoms also could be related to constipation. I recommend bowel rest in case your symptoms are that of early diverticulitis. Take Tylenol and ibuprofen at home as needed for pain. 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 Return to the emergency department for new or worsening symptoms. Please follow-up with your primary care provider over the next 3 days. Clinical Impressions Clinical Impression: Abdominal pain, acute, left lower quadrant, Diverticular disease Stand Alone Forms Stand Alone Forms: Work/School Release Instructions Patient Instructions: DI for Acute Abdominal Pain, DI for Diverticulosis Discharge ED Provider: Roxy Floyd General Adult HPI General Chief complaint: Abdominal Pain Stated complaint: lower abd pain Time Seen by Provider: 10/23/23 07:11 History of Present Illness HPI narrative: This patient is a 37-year-old male with a history of diverticulitis presenting to the emergency department for evaluation with concern for left lower quadrant abdominal pain that feels like a prior diverticulitis flare. He reports that pain started yesterday. He has also had nausea. No change in bowel movements. Last bowel movement was yesterday. No fevers, chills, or other concerns. He had to be hospitalized once for diverticulitis and another time he went home with oral antibiotics. No prior surgeries related to this. Related Data Home Medications Medication Instructions Recorded Confirmed esomeprazole magnesium 20 mg 20 mg PO DAILY GERD 04/27/22 06/22/23 capsule,delayed release (Nexium) Previous Rx's Medication Instructions Recorded amoxicillin 875 mg-potassium 1 tab PO Q8H 5 days #15 tabs 06/22/23 clavulanate 125 mg tablet hydrocodone 5 mg-acetaminophen 325 1 tab PO Q8H PRN pain #10 tabs 06/22/23 mg tablet naproxen 500 mg tablet 500 mg PO BID PRN pain #20 tabs 06/22/23 ondansetron 4 mg disintegrating 4 mg PO Q8H PRN nausea and 06/22/23 tablet vomiting 4 days #12 tabs ondansetron 4 mg disintegrating 4 mg PO Q8H PRN nausea and 10/23/23 tablet vomiting 4 days #12 tabs Allergies Allergy/AdvReac Type Severity Reaction Status Date / Time No Known Allergies Allergy Verified 09/05/22 10:58 [facility] Disclaimer: The information contained in this section may have been updated after the patient was seen, as this information can be updated by other users. Medical History History of COVID-19 History of gastroesophageal reflux (GERD) Allergies Hypertension Surgical History History of colonoscopy History of back surgery History of appendectomy History of cholecystectomy Family History Other No significant family history Social History Smoking Status: Current every day smoker tobacco type: smokeless tobacco years smoked: 15 smoking status stop date: 2018 alcohol intake: current alcohol intake frequency: a few times a week counseling provided: other substance use type: denies use current occupational status: employed Travel in the last 8 weeks: None household members: family housing: house ROS Obtained: Yes All systems reviewed & no additional complaints except as documented Physical Exam General General appearance: alert and in no apparent distress Head Head exam: atraumatic and normocephalic Eye Eye exam: Present normal appearance, PERRL and EOMI ENT ENT exam: Present normal exam, normal oropharynx, mucous membranes moist and normal external ear exam Neck Neck exam: Present normal inspection, full ROM and trachea midline; Absent tenderness Chest Chest inspection: Present normal inspection and symmetric chest wall rise; Absent tenderness Respiratory Respiratory exam: Present normal lung sounds bilaterally; Absent respiratory distress, wheezes, stridor or accessory muscle use Cardiovascular Cardiovascular exam: Present regular rate and normal rhythm Abdominal Exam Abdominal exam: Present soft, tenderness (Suprapubic, left lower quadrant) and normal bowel sounds; Absent distention, guarding, rebound or rigidity Extremities Exam Extremities exam: Present normal inspection, full ROM and normal capillary refill; Absent tenderness or edema Back Exam Back exam: Present normal inspection and full ROM; Absent tenderness Neurological Exam Neurological exam: Present alert, oriented X3, CN II-XII intact and normal gait; Absent motor sensory deficit Psychiatric Psychiatric exam: Present normal affect and normal mood Skin Skin exam: Present warm and dry Medical Decision Making Medical Records Medical records reviewed: Yes I reviewed the patient's medical records. Dl Inquiry Pt receiving controlled substance: No Vital Signs: 10/23/23 07:07 10/23/23 08:00 10/23/23 08:46 Temperature 98.2 F Temperature Source Oral Pulse Rate 91 H Pulse Rate [Right] 78 Respiratory Rate 17 Blood Pressure 127/87 118/64 Blood Pressure [Right Arm] 134/99 H Blood Pressure Mean 100 Blood Pressure Mean [Right Arm] 110 Blood Pressure Source [Right Arm] Automatic Cuff 02 Sat by Pulse Oximetry 98 97 Oxygen Delivery Method Room Air 10/23/23 09:01 10/23/23 09:30 10/23/23 10:00 Temperature Temperature Source Pulse Rate 62 67 55 L Pulse Rate [Right] Respiratory Rate Blood Pressure 121/88 129/85 132/96 H Blood Pressure [Right Arm] Blood Pressure Mean Blood Pressure Mean [Right Arm] Blood Pressure Source [Right Arm] 02 Sat by Pulse Oximetry 98 97 99 Oxygen Delivery Method Room Air 10/23/23 10:06 Temperature 98.2 F Temperature Source Oral Pulse Rate 72 Pulse Rate [Right] Respiratory Rate 18 Blood Pressure 122/69 Blood Pressure [Right Arm] Blood Pressure Mean Blood Pressure Mean [Right Arm] Blood Pressure Source [Right Arm] 02 Sat by Pulse Oximetry Oxygen Delivery Method Room Air Lab Data Lab results reviewed: Yes I reviewed the patient's lab results. Lab Results 10/23/23 07:11: WBC 7.6, RBC 4.82, Hgb 14.8, Hct 44.2, MCV 91.7, MCH 30.7, MCHC 33.5, RDW 14.0, Plt Count 260, MPV 8.4, Neut % (Auto) 51.9, Lymph % (Auto) 36.8, [place] % (Auto) 4.6, Eos % (Auto) 5.4, Baso % (Auto) 1.3, Neut # (Auto) 3.9, Lymph # (Auto) 2.8, [place] # (Auto) 0.4, Eos # (Auto) 0.4, Baso # (Auto) 0.1, Sodium 139, Potassium 3.9, Chloride 110 H, Carbon Dioxide 24, Anion Gap 8.9, BUN 11, Creatinine 0.80, Estimated GFR 110, Est GFR ( Amer) 133, Glucose 121 H, Calcium 9.1, Total Bilirubin 0.4, AST 43, ALT 52, Alkaline Phosphatase 92, Total Protein 6.8, Albumin 4.1, Globulin 2.7, Albumin/Globulin Ratio 1.5, Urine Color Yellow, Urine Appearance Clear, Urine pH 6.0, Ur Specific [place] <= 1.005, Urine Protein Negative, Urine Glucose (UA) Negative, Urine Ketones Negative, Urine Blood Negative, Urine Nitrate Negative, Urine Bilirubin Negative, Urine Urobilinogen 0.2, Ur Leukocyte Esterase Negative, Urine RBC Occasional, Urine WBC Occasional, Urine Bacteria Trace, Urine Sperm Occ 10/23/23 07:11 10/23/23 07:11 Orders (Tests/Meds): ED MEDICATIONS Discontinued Medications Generic Name Dose Route Start Last Admin Trade Name Freq PRN Reason Stop Dose Admin Acetaminophen 1,000 mg 10/23/23 07:18 10/23/23 07:33 Acetaminophen 500mg Tab PO 10/23/23 07:19 1,000 mg ONCE ONE Administration Lactated Ringer's 1,000 mls @ 999 mls/hr 10/23/23 07:18 10/23/23 07:33 Lactated Ringer's 1000 Ml Bag IV 10/23/23 08:18 999 mls/hr .Q1H1M ONE Administration Iopamidol 75 ml 10/23/23 07:38 10/23/23 07:39 Iopamidol-370 (76%);100ml Bottle IV 10/23/23 07:39 75 ml ONCE ONE Administration Ketorolac Tromethamine 15 mg 10/23/23 07:18 10/23/23 07:33 Ketorolac 30mg/Ml Vial IV 10/23/23 07:19 15 mg ONCE ONE Administration Ondansetron HCl 4 mg 10/23/23 07:18 10/23/23 07:33 Ondansetron 4mg/2ml Vial IV 10/23/23 07:19 4 mg ONCE ONE Administration Sodium Chloride 10 ml 10/23/23 07:38 10/23/23 07:39 Sodium Chloride 0.9% 10ml Syr (Rad Only) IV 10/23/23 07:39 10 ml ONCE ONE Administration ORDERS Category Date Time Status CT abdomen pelvis w con Stat Cat Scan 10/23/23 07:18 Completed Complete Blood Count Auto Diff Stat Lab 10/23/23 07:11 Completed Comprehensive Metabolic Panel Stat Lab 10/23/23 07:11 Completed Urinalysis and Microscopic Stat Lab 10/23/23 07:11 Completed Medical Decision Narrative: In summary, this patient is a 37-year-old male presenting to the Emergency Department for evaluation of left lower quadrant abdominal. Differential diagnoses considered include but are not limited to diverticulitis, colitis, perforation, abscess, cystitis. Ruling out the most morbid conditions drove assessment. I reviewed patient's past medical records and noted previous evaluation for diverticulitis in May and discharge home on Augmentin for severe diverticulitis without perforation or abscess. On exam, the patient is nontoxic-appearing with reassuring vital signs. He does have left lower quadrant/suprapubic tenderness, but no rebound or guarding. He was given a bolus of IV fluids as well as IV Toradol, oral Tylenol, and IV Zofran for symptomatic improvement. Workup included CBC, CMP, urinalysis, and CT abdomen and pelvis with IV contrast. I independently interpreted CT scan prior to the radiologist read and noted diverticulosis without acute evidence of diverticulitis at this time. Please see their read for final interpretation. Labs were obtained that demonstrated no acutely concerning abnormalities. On reassessment, patient had good improvement after administration of interventions above. Advised that he could be having pain from early diverticulitis that we are not picking up on scan, or it could be that it is related to constipation or gas. Otherwise, based on reassuring workup and exam, feel the patient is appropriate for discharge home with prescription for Zofran to treat nausea and instructions for supportive management. Strict return precautions were given as well as instructions for close patient follow-up. The patient was discharged after all questions were answered. Critical Care Critical Care Time Critical Care Time: No
[2023-10-23 07:26] LABS: Basophils # 0.1 K/mm3 (0-0.2); Basophils % 1.3 % (0.1-2.0); Eosinophils # 0.4 K/mm3 (0.0-0.4); Eosinophils % 5.4 % (0.1-12.0); Hematocrit 44.2 % (42.0-52.0); Hemoglobin 14.8 g/dL (14.1-18.0); Lymphocytes # 2.8 K/mm3 (0.7-4.5); Lymphocytes % 36.8 % (10-50); Mean Corpuscular HGB Conc 33.5 g/dL (31.8-35.4); Mean Corpuscular Hemoglobin 30.7 pg (27.0-31.2); Mean Corpuscular Volume 91.7 fl (80-94); Mean Platelet Volume 8.4 fl (7.4-10.4); Monocytes # 0.4 K/mm3 (0.1-1.0); Monocytes % 4.6 % (1.7-9.3); Neutrophils # 3.9 K/mm3 (1.8-7.8); Neutrophils % 51.9 % (37.0-80.0); Platelet Count 260 K/mm3 (142-424); Red Blood Count 4.82 M/mm3 (4.60-6.20); White Blood Count 7.6 K/mm3 (4.8-10.8)
[2023-10-23 07:27] LABS: Chloride 110 mmol/L (98-107); Potassium 3.9 mmoL/L (3.5-5.1); Sodium 139 mmol/L (136-145)
--- NOTE | 2023-10-23 07:28 | PC.NURSE ---
pt to ct
[2023-10-23 07:29] LABS: Blood Urea Nitrogen 11 mg/dl (9-20); Estimated Glomerular Filt Rate 110 ml/min (>60); GFR (African American) 133 ML/MIN (>60)
[2023-10-23 07:30] LABS: Alanine Aminotransferase 52 U/L (12-78); Albumin Level 4.1 g/dl (3.5-5.0); Albumin/Globulin Ratio 1.5 (1.1-1.8); Alkaline Phosphatase 92 U/L (38-126); Anion Gap 8.9 mEq/L (5-15); Aspartate Amino Transferase 43 U/L (17-59); Bilirubin,Total 0.4 mg/dl (0.2-1.3); Carbon Dioxide 24 mmol/L (22.0-30.0); Globulin 2.7 g/dL (1.3-3.2); Total Protein,Serum 6.8 g/dl (6.3-8.2)
[2023-10-23 07:31] LABS: Calcium 9.1 mg/dl (8.4-10.2); Glucose 121 mg/dl (74-100)
[2023-10-23] MEDS: KETOROLAC 30MG/ML VIAL 15 MG IV (07:33)
[2023-10-23] MEDS: LACTATED RINGERS 1000ML 1,000 ML 999 ML IV (07:33)
[2023-10-23] MEDS: ONDANSETRON 4MG/2ML VIAL 4 MG IV (07:33)
[2023-10-23] MEDS: ACETAMINOPHEN 500MG TAB 1000 MG PO (07:33)
--- NOTE | 2023-10-23 07:35 | PC.NURSE ---
PT RETURNED FROM CT
[2023-10-23] MEDS: SODIUM CHLORIDE 0.9% 10ML SYR (RAD ONLY) 10 ML IV (07:39)
[2023-10-23] MEDS: IOPAMIDOL-370 (76%);100ML BOTTLE 75 ML IV (07:39)
--- NOTE | 2023-10-23 08:41 | PC.NURSE ---
ROUNDED ON PT, PT SNORING. AWAKENS EASILY. DENIES NEEDS AT THIS TIME. CALL LIGHT WITHIN REACH
--- NOTE | 2023-10-23 08:56 | PC.NURSE ---
PT ASSISTED TO BR, UA COLLECTED
[2023-10-23 09:04] LABS: Microscopic, Urine URINE MICROSCOPIC (MICROSCOPIC)
[2023-10-23 09:21] LABS: Appearance,Urine CLEAR (Clear); Bilirubin,Urine Negative (Negative); Blood, Urine Negative (Negative); Color,Urine YELLOW (Yellow); Glucose,Urine (UA) Negative (Negative); Ketones,Urine Negative (Negative); Leukocyte Esterase,Urine Negative (Negative); Nitrate,Urine Negative (Negative); Protein,Urine Negative (Negative); Specific Gravity, Urine <= 1.005 (1.005-1.030); Urobilinogen,Urine 0.2 EU/dl (0.2)
[2023-10-23 09:43] LABS: Bacteria,Urine Trace /lpf; RBC,Urine Occasional #/hpf (0-3); Sperm,Urine OCC /lpf; WBC,Urine Occasional #/hpf (0-3)
== END 2023-10-23 10:07 | disposition home or self-care (01) ==
PROVIDERS: Emergency Provider Emergency Medicine; PCP Nurse Practitioner Family
DX: R10.32 Left lower quadrant pain (principal); R11.0 Nausea; K57.90 Diverticulosis of intestine, part unspecified, without perforation or abscess without bleeding
CPT/HCPCS: 74177; 80053; 81001; 85025; 96361; 96374; 96375; 99284; J2405; Q9967